=== PATIENT | female | born 1935 | race Caucasian/White ===

== ENCOUNTER 2016-07-01 08:58 | Day surgery (SDC) | payer MEDICARE, BC ==
[~2016-07-01 08:58] MED LIST: Lactated Ringers 1,000 ML IV SCH; Lidocaine 1%/Sod Bicarbonate in NS 8.4% 1 ML Syringe IV PRN; Sodium Chloride 0.9% 10 ML Syringe FLUSH PRN
--- NOTE | 2016-07-01 10:16 | PCM.PREANE ---
Preanesthetic Assessment - Procedure Proposed Procedure: Diagnostic EGD - Anesthesia/Transfusion/Family Hx Anesthesia History: Prior Anesthesia Without Reaction Family History of Anesthesia Reaction: No Transfusion History: No Prior Transfusion(s) - Review of Systems General: No Symptoms Pulmonary: No Symptoms Cardiovascular: No Symptoms Gastrointestinal: Difficulty swallowing Neurological: No Symptoms, Other (TIA 3 years ago ) Other: Reports: None - Physical Assessment NPO Status Date: 06/30/16 NPO Status Time: 20:00 O2 Sat by Pulse Oximetry: 98 Respiratory Rate: 16 Vital Signs: Last Vital Signs Temp 36.3 C 07/01/16 09:20 Pulse 68 07/01/16 09:20 Resp 16 07/01/16 09:20 BP 159/61 H 07/01/16 09:20 Pulse Ox 98 07/01/16 09:20 Height: 1.65 m Weight: 83.915 kg ASA Class: 2 Mental Status: Alert & Oriented x3 Airway Class: Mallampati = 3 Dentition: Reports: Normal Dentition Thyro-Mental Finger Breadths: 3 Mouth Opening Finger Breadths: 3 ROM/Head Extension: Full Lungs: Clear to auscultation, Normal respiratory effort Cardiovascular: Regular Rate, Regular Rhythm - Allergies Allergies/Adverse Reactions: Allergies Allergy/AdvReac Type Severity Reaction Status Date / Time Dairy Products Allergy Stomach Verified 06/30/16 14:46 Upset gluten Allergy Stomach Verified 06/30/16 14:46 Upset walnut Allergy Anaphylactic Verified 06/30/16 14:46 Shock - Blood Blood Available: No Product(s) Available: None - Acknowledgements Anesthesia Type Planned: MAC Pt an Appropriate Candidate for the Planned Anesthesia: Yes Alternatives and Risks of Anesthesia Discussed w Pt/Guardian: Yes Pt/Guardian Understands and Agrees with Anesthesia Plan: Yes PreAnesthesia Questionnaire HEENT History: Reports: Allergic Rhinitis, Cataract, Other (See Below) Other HEENT History: glasses, hearing aids Cardiovascular History: Reports: High Cholesterol, Hypertension Respiratory History: Reports: None Gastrointestinal History: Reports: GERD, Other (See Below) Other Gastrointestinal History: dysphagia Genitourinary History: Reports: None BUILDING MANAGER History: Reports: None Musculoskeletal History: Reports: Arthritis, RA Neurological History: Reports: TIA Psychiatric History: Reports: None Endocrine/Metabolic History: Reports: None Hematologic History: Reports: None Immunologic History: Reports: None Oncologic (Cancer) History: Reports: Basal Cell Carcinoma Dermatologic History: Reports: None - Past Surgical History Head Surgeries/Procedures: Reports: None GI Surgical History: Reports: Colonoscopy - SUBSTANCE USE Smoking Status *Q: Former Smoker Second Hand Smoke Exposure: No Recreational Drug Use History: No - HOME MEDS Home Medications: Home Meds Albuterol [IJD: Ventolin HFA] 1 - 2 puff INH Q4H PRN 06/30/16 [History] Aspirin [Ecotrin] 81 mg PO DAILY 06/30/16 [History] Cholecalciferol (Vitamin D3) [Vitamin D3] 2,000 unit PO DAILY 06/30/16 [History] Folic Acid 1 mg PO TID 06/30/16 [History] Losartan/Hydrochlorothiazide [Losartan-HCTZ 50-12.5 MG] 1 tab PO DAILY 06/30/16 [History] Methotrexate Sodium [Methotrexate] 5 tab PO TH 06/30/16 [History] Nabumetone [Relafen] 750 mg PO BID 06/30/16 [History] [place]-3 Acid Ethyl Esters [Lovaza] 1 g PO BID 06/30/16 [History] Pravastatin Sodium 80 mg PO DAILY 06/30/16 [History] Ubidecarenone [Coq-10] 100 mg PO DAILY 06/30/16 [History] buPROPion [Wellbutrin XL] 150 mg PO DAILY 06/30/16 [History] diphenhydrAMINE [Benadryl] 25 mg PO DAILY PRN 06/30/16 [History] - CURRENT (IN HOUSE) MEDS Current Meds: Current Medications Lactated Ringer's (Ringers, Lactated) 1,000 mls @ 125 mls/hr IV ASDIRECTED LORENZO Stop: 07/01/16 23:00 Last Admin: 07/01/16 09:40 Dose: 125 mls/hr Lidocaine/Sodium Bicarbonate (Buffered Lidocaine 1% In Ns 8.4%) 0.25 ml IV ONETIME PRN PRN Reason: Prior to IV Start Stop: 07/01/16 18:00 Last Admin: 07/01/16 09:39 Dose: 0.25 ml Sodium Chloride (Saline Flush) 10 ml FLUSH ASDIRECTED PRN PRN Reason: Keep Vein Open Stop: 07/01/16 18:00
[2016-07-01] MEDS ORDERED: Propofol 200 MG/20 ML SDV ONE (10:47)
--- NOTE | 2016-07-01 11:12 | PCM48HPAN ---
Post Anesthesia Note - EVALUATION WITHIN 48HRS OF ANESTHETIC Vital Signs in Normal Range: Yes Patient Participated in Evaluation: Yes Respiratory Function Stable: Yes Airway Patent: Yes Cardiovascular Function Stable: Yes Hydration Status Stable: Yes Pain Control Satisfactory: Yes Nausea and Vomiting Control Satisfactory: Yes Mental Status Recovered: Yes
--- NOTE | 2016-07-01 11:15 | PCM.OPNOTE ---
- General Post-Op/Procedure Note Date of Surgery/Procedure: 07/01/16 Operative Procedure(s): Esophagogastroduodenoscopy with cold forceps biopsy of the proximal esophagus x2. The distal esophagus x4 and the antrum x2 Findings: 1. Schatzki's ring, or reflux stricture 2. esophageal ulcer 3. small hiatal hernia 4. mild antritis Pre Op Diagnosis: Dysphagia Post-Op Diagnosis: 1. reflux stricture or Schatzki's ring. 2. sliding hiatal hernia. 3. esophageal ulcer. 4. antritis Anesthesia Technique: MAC, Moderate sedation Primary Surgeon: Silas Chauhan Pathology: 1. proximal esophageal biopsy x2 2. stricture, or ring biopsy x4 3. antral biopsy x2 EBL in mLs: 0 Complications: None Condition: Good Free Text/Narrative:: After adequate IV sedation and analgesia was obtained the patient was placed on her left side. Through a bite block a lubricated upper endoscope was inserted into the esophagus and advanced under direct vision towards the stomach. Additional air was given here. The antrum had several erythematous areas with no erosions or ulcerations. The scope was advanced into the duodenum. The second , and first portion of the duodenum were normal with no inflammation or ulcerations. Two biopsies were taken of the antrum. In the retroflexed view the fundus and cardiac, regions were unremarkable. There was an obvious sliding hiatal hernia. The rugal folds were normal. There were no inflammatory changes in these areas. The scope was withdrawn to the area of the GE junction where there was a concentric ring. These endoscopic findings were consistent with a Schatzki's ring, or an early reflux stricture. The scope passed easily through this area. There was an erosion or ulceration emanating from the ring extended in a cephalad direction for about a centimeter. This linear finding, was biopsied, as well as the ring times four. The proximal esophagus in its third component was biopsied for histologic review. Photographs are taken for the patient and for the record.
[2016-07-01 12:11] VITALS: BP 147/68
== END 2016-07-01 11:42 | disposition home or self-care (01) ==
LOC: JD.SDS 08:58
PROVIDERS: ATTEND Surgery
DX: B33.20 Viral carditis, unspecified (principal); I10 Essential (primary) hypertension; E78.00 Pure hypercholesterolemia, unspecified; K21.9 Gastro-esophageal reflux disease without esophagitis; Z91.011 Allergy to milk products; Z91.018 Allergy to other foods; Z79.899 Other long term (current) drug therapy; Z78.9 Other specified health status; Z87.891 Personal history of nicotine dependence
CPT/HCPCS: 43239; J7120; 88305; J2704

== ENCOUNTER 2017-07-05 17:53 | Emergency (ER) | payer MEDICARE, BC ==
[2017-07-05 18:09] VITALS: BP 154/103
--- NOTE | 2017-07-05 18:21 | EDM.PDOC ---
ED HPI GENERAL MEDICAL PROBLEM - General Chief Complaint: Upper Extremity Injury/Pain Stated Complaint: RIGHT SHOULDER INJURY Time Seen by Provider: 07/05/17 18:16 Source of Information: Reports: Patient History Limitations: Reports: No Limitations - History of Present Illness INITIAL COMMENTS - FREE TEXT/NARRATIVE: 81-year-old female presents the ED indicating that she tripped and fell at home within the last half hour. She got up from the seated position with her hands for one believes she may tripped over the automatic leg. She landed hard on her right shoulder. Since that time she's been unable to abduct or forward flex her right shoulder. She denies hitting her head or losing consciousness. She denies injuring her hip her knee or her wrist. Her ribs feel okay as well. He does not take any blood thinners. Onset: Today Onset Date: 07/05/17 Onset Time: 17:30 Location: Reports: Upper Extremity, Right (Right proximal humerus.) Quality: Reports: Ache Severity: Moderate Improves with: Reports: None Worsens with: Reports: Movement Context: Reports: Trauma (Tripped and fell at home in her living room.). Denies : Activity, Exercise (Any attempt to abduct the arm causes severe pain), Lifting , Sick Contact Associated Symptoms: Reports: No Other Symptoms Treatments CLINICAL RESOURCE NURSE: Reports: Other (see below) (None.) Right Shoulder Pain Score (Numeric/FACES): 10 - Related Data Allergies Allergy/AdvReac Type Severity Reaction Status Date / Time Dairy Products Allergy Stomach Verified 06/30/16 14:46 Upset gluten Allergy Stomach Verified 06/30/16 14:46 Upset walnut Allergy Anaphylactic Verified 06/30/16 14:46 Shock Home Meds: Home Meds Albuterol [IJD: Ventolin HFA] 1 - 2 puff INH Q4H PRN 06/30/16 [History] Aspirin [Ecotrin] 81 mg PO DAILY 06/30/16 [History] Cholecalciferol (Vitamin D3) [Vitamin D3] 2,000 unit PO DAILY 06/30/16 [History] Folic Acid 1 mg PO TID 06/30/16 [History] Losartan/Hydrochlorothiazide [Losartan-HCTZ 50-12.5 MG] 1 tab PO DAILY 06/30/16 [History] Methotrexate Sodium [Methotrexate] 5 tab PO TH 06/30/16 [History] Nabumetone [Relafen] 750 mg PO BID 06/30/16 [History] [place]-3 Acid Ethyl Esters [Lovaza] 1 g PO BID 06/30/16 [History] Pravastatin Sodium 80 mg PO DAILY 06/30/16 [History] Ubidecarenone [Coq-10] 100 mg PO DAILY 06/30/16 [History] buPROPion [Wellbutrin XL] 150 mg PO DAILY 06/30/16 [History] diphenhydrAMINE [Benadryl] 25 mg PO DAILY PRN 06/30/16 [History] oxyCODONE HCl/Acetaminophen [Percocet 5-325 mg Tablet] 1 - 2 each PO Q4H PRN # 20 tablet 07/05/17 [Rx] Past Medical History HEENT History: Reports: Allergic Rhinitis, Cataract, Other (See Below) Other HEENT History: glasses, hearing aids Cardiovascular History: Reports: High Cholesterol, Hypertension Respiratory History: Reports: None Gastrointestinal History: Reports: GERD, Other (See Below) Other Gastrointestinal History: dysphagia Genitourinary History: Reports: None INSURANCE CONSULTANT History: Reports: None Musculoskeletal History: Reports: Arthritis, RA Neurological History: Reports: TIA Psychiatric History: Reports: None Endocrine/Metabolic History: Reports: None Hematologic History: Reports: None Immunologic History: Reports: None Oncologic (Cancer) History: Reports: Basal Cell Carcinoma Dermatologic History: Reports: None - Past Surgical History Head Surgeries/Procedures: Reports: None GI Surgical History: Reports: Colonoscopy Social & Family History - Family History Family Medical History: Noncontributory - Tobacco Use Smoking Status *Q: Never Smoker - Caffeine Use Caffeine Use: Reports: None - Recreational Drug Use Recreational Drug Use: No - Living Situation & Occupation Living situation: Reports: Occupation: Retired Review of Systems - Review of Systems Review Of Systems: See Below Constitutional: Reports: No Symptoms Eyes: Reports: Glasses (Wears eyeglasses) Ears: Reports: No Symptoms Nose: Reports: No Symptoms Mouth/Throat: Reports: No Symptoms Respiratory: Reports: No Symptoms Cardiovascular: Reports: No Symptoms GI/Abdominal: Reports: No Symptoms Genitourinary: Reports: No Symptoms Musculoskeletal: Reports: Joint Pain Skin: Reports: No Symptoms (Knees hips back at times.) Neurological: Reports: No Symptoms Psychiatric: Reports: No Symptoms ED EXAM, GENERAL - Physical Exam Exam: See Below Exam Limited By: No Limitations General Appearance: Alert, WD/WN, Mild Distress Throat/Mouth: Normal Inspection, Normal Lips, Normal Oropharynx Head: Atraumatic, Normocephalic Neck: Normal Inspection, Supple, Non-Tender, Full Range of Motion. No: Carotid Bruit, Lymphadenopathy (L), Lymphadenopathy (R) Respiratory/Chest: No Respiratory Distress, Lungs Clear, Normal Breath Sounds, Other (No ) Cardiovascular: Normal Peripheral Pulses, Regular Rate, Rhythm, No Edema, No Murmur (pain on palpation of her ribs.) Peripheral Pulses: 2+: Radial (L), Radial (R) Extremities: Other (Examination was limited for the most part of the right upper extremity. Her wrist is intact her hand is normal she has full pronation supination at the elbow. Pain is localized to the surgical neck of the humerus. Clavicle appears intact no pain over the before meals joint.) Neurological: Alert ( No obvious swelling or deformity.), Oriented, CN II-XII Intact, Normal Cognition, Normal Gait Psychiatric: Normal Affect, Normal Mood Skin Exam: Warm, Dry, Intact, Normal Color, No Rash Course - Vital Signs Last Recorded V/S: Last Vital Signs Temp 36.6 C 07/05/17 18:06 Pulse 62 07/05/17 18:06 Resp 16 07/05/17 18:06 BP 154/103 H 07/05/17 18:06 Pulse Ox 97 07/05/17 18:06 - Orders/Labs/Meds Orders: Active Orders 24 hr Category Date Time Status Humerus Rt [CR] Stat Exams 07/05/17 18:17 Taken Meds: Medications Discontinued Medications Generic Name Dose Route Start Last Admin Trade Name Freq PRN Reason Stop Dose Admin Oxycodone/Acetaminophen 2 tab 07/05/17 18:56 07/05/17 19:10 Percocet 325-5 Mg PO 07/05/17 18:57 2 tab ONETIME ONE Administration - Radiology Interpretation Free Text/Narrative:: 81-year-old female presents to the ED for evaluation of injury to her right proximal humerus area when she tripped and fell at home short time ago. She believes she landed directly on her right shoulder. Since that time she's been a unable to afford flex or abduct the shoulder. Pain is localized to the proximal right humerus. No other injuries are identified. Plan: x-ray right humerus. - Re-Assessments/Exams Free Text/Narrative Re-Assessment/Exam: 07/05/17 18:58 x-rays confirmed fracture of the proximal humerus with good position. There is slight impaction at the fracture site. Position is otherwise good. Patient will be treated with sling and swath. Provided 2 Percocet tablets from the ED tonight. Take one tablet first and see off Effexor pain and may repeat in one half hours if pain not controlled. Ice pack to the shoulder for one half hour out of every 4 hours tonight and tomorrow. She will follow-up with Dr. Garduno orthopedic surgeon in 10 days' time. Departure - Departure Time of Disposition: 18:59 Disposition: Home, Self-Care 01 Condition: Fair Clinical Impression: Fracture of proximal humerus Qualifiers: Encounter type: initial encounter Fracture type: closed Fracture morphology: other fracture Fracture alignment: nondisplaced Laterality: right Qualified Code (s): S42.294A - Other nondisplaced fracture of upper end of right humerus, initial encounter for closed fracture - Discharge Information Prescriptions: oxyCODONE HCl/Acetaminophen [Percocet 5-325 mg Tablet] 1 - 2 each PO Q4H PRN # 20 tablet PRN Reason: pain relief. Instructions: Distal Humerus Elbow Fracture Referrals: PCP,None [Primary Care Provider] - Forms: ED Department Discharge Additional Instructions: Evaluation the emergency room today in regards to a trip and fall at home with injury to your right upper arm. X-rays confirm a fracture through the proximal aspect of the humerus or arm bone. The position and alignment are good. Treatment is therefore time to heal. Treatment is to be a in a sling and swath for most of the next 3 weeks. Take it off only to bathe up underneath your armpit and etc.Ice pack to the area one half hour every 4 hours today and tomorrow. Percocet tabs for pain relief 1 tablet every 4-6 hours as needed. If still hurting badly and hour and a half after the first tablet may take a second tablet. Suggest placing bupropion medication on hold for the next 3-5 days while you are on the pain medication as the Bupropion interferes with the metabolism of oxycodone or hydrocodone. Suggest follow-up with Dr. Garduno orthopedic surgeon in 10 days' time. Please call [phone] to arrange an appointment tomorrow. His office on the second floor of the [facility]. - My Orders Last 24 Hours: My Active Orders 07/05/17 18:17 Humerus Rt [CR] Stat - Assessment/Plan Last 24 Hours: My Active Orders 07/05/17 18:17 Humerus Rt [CR] Stat
[2017-07-05] MEDS ORDERED: Acetaminophen/oxyCODONE 325-5 MG Tab PO ONE (18:56)
--- NOTE | 2017-07-06 10:07 | CR ---
Right humerus: Two views of the right humerus were obtained. Comparison: No prior humerus or shoulder exam. Nondisplaced fracture is identified within the surgical neck within the proximal humerus. No additional fracture or other abnormality is seen. Impression: 1. Nondisplaced fracture involving the surgical neck of the proximal right humerus. Diagnostic code #3
== END 2017-07-05 19:15 | disposition home or self-care (01) ==
LOC: JD.ED 17:53
DX: S42.214A Unspecified nondisplaced fracture of surgical neck of right humerus, initial encounter for closed fracture (principal); I10 Essential (primary) hypertension; E78.00 Pure hypercholesterolemia, unspecified; K21.9 Gastro-esophageal reflux disease without esophagitis; M19.90 Unspecified osteoarthritis, unspecified site; Z91.011 Allergy to milk products; Z79.82 Long term (current) use of aspirin; Z79.899 Other long term (current) drug therapy; W01.198A Fall on same level from slipping, tripping and stumbling with subsequent striking against other object, initial encounter; Y92.009 Unspecified place in unspecified non-institutional (private) residence as the place of occurrence of the external cause
CPT/HCPCS: 73060; 99284; A9270

== ENCOUNTER 2019-05-12 16:58 | Inpatient (IN) | payer MEDICARE, BC, OTHER ==
--- NOTE | 2019-05-12 17:13 | EDM.PDOC ---
ED HPI GENERAL MEDICAL PROBLEM - General Chief Complaint: Respiratory Problem Stated Complaint: SENT FROM [place] WITH POSSIBLE COVID 19 Time Seen by Provider: 05/12/19 17:12 - History of Present Illness INITIAL COMMENTS - FREE TEXT/NARRATIVE: 83-year-old female presents to the emergency room after being evaluated in the walk-in clinic at [facility]. She is sent over for evaluation of possible COVID-19 pneumonia. Patient states she has not been feeling well for the last 2 weeks. The patient did come back here from [place] where she spent most the winter a couple of weeks ago. Patient just generally has not been feeling well she is got a little bit of a cough occasionally productive. She is not aware of any fevers or chills. Patient is treated for rheumatoid arthritis she has been taking her methotrexate but is not been taking the Remicade because there was some sort of a tangle up with the insurance. She denies any nausea or vomiting and she has no urinary complaints. Buttock Pain Score (Numeric/FACES): 5 - Related Data Allergies Allergy/AdvReac Type Severity Reaction Status Date / Time Dairy Products Allergy Stomach Verified 05/12/19 17:07 Upset gluten Allergy Stomach Verified 05/12/19 17:07 Upset walnut Allergy Anaphylactic Verified 05/12/19 17:07 Shock Home Meds: Home Meds Aspirin [Ecotrin EC] 81 mg PO DAILY 06/30/16 [History] Cholecalciferol (Vitamin D3) [Vitamin D3] 2,000 unit PO DAILY 06/30/16 [History] Folic Acid 1 mg PO TID 06/30/16 [History] Losartan/Hydrochlorothiazide [Losartan-HCTZ 50-12.5 MG] 1 tab PO DAILY 06/30/16 [History] Methotrexate Sodium [Methotrexate] 5 tab PO TH 06/30/16 [History] Nabumetone [Relafen] 750 mg PO BID 06/30/16 [History] [place]-3 Acid Ethyl Esters [Lovaza] 1 g PO BID 06/30/16 [History] Pravastatin Sodium 80 mg PO DAILY 06/30/16 [History] Ubidecarenone [Coq-10] 100 mg PO DAILY 06/30/16 [History] buPROPion [Wellbutrin XL] 150 mg PO DAILY 06/30/16 [History] oxyCODONE HCl/Acetaminophen [Percocet 5-325 mg Tablet] 1 - 2 each PO Q4H PRN # 20 tablet 07/05/17 [Rx] Past Medical History HEENT History: Reports: Allergic Rhinitis, Cataract, Other (See Below) Other HEENT History: glasses, hearing aids Cardiovascular History: Reports: High Cholesterol, Hypertension Respiratory History: Reports: None Gastrointestinal History: Reports: GERD, Other (See Below) Other Gastrointestinal History: dysphagia Genitourinary History: Reports: None COMMUNITY ADMINISTRATOR History: Reports: None Musculoskeletal History: Reports: Arthritis, RA Neurological History: Reports: TIA Psychiatric History: Reports: None Endocrine/Metabolic History: Reports: None Hematologic History: Reports: None Immunologic History: Reports: None Oncologic (Cancer) History: Reports: Basal Cell Carcinoma Dermatologic History: Reports: None - Past Surgical History Head Surgeries/Procedures: Reports: None GI Surgical History: Reports: Colonoscopy Social & Family History - Family History Family Medical History: Noncontributory - Caffeine Use Caffeine Use: Reports: None - Living Situation & Occupation Living situation: Reports: Occupation: Retired ED ROS GENERAL - Review of Systems Review Of Systems: See Below Constitutional: Reports: No Symptoms HEENT: Reports: No Symptoms Respiratory: Reports: Cough, Sputum. Denies: Hemoptysis Cardiovascular: Reports: No Symptoms Endocrine: Reports: No Symptoms GI/Abdominal: Reports: No Symptoms : Reports: No Symptoms Musculoskeletal: Reports: No Symptoms Skin: Reports: No Symptoms Neurological: Reports: No Symptoms Psychiatric: Reports: No Symptoms ED EXAM, GENERAL - Physical Exam Exam: See Below Exam Limited By: No Limitations General Appearance: Alert, No Apparent Distress, Other Eye Exam: Bilateral Eye: Normal Inspection Ears: Normal External Exam, Normal Canal, Hearing Grossly Normal, Normal TMs Nose: Normal Inspection, Normal Mucosa, No Blood Throat/Mouth: Normal Inspection, Normal Lips, Normal Teeth, Normal Gums Head: Atraumatic, Normocephalic Neck: Normal Inspection, Supple, Non-Tender, Full Range of Motion. No: Lymphadenopathy (L), Lymphadenopathy (R) Respiratory/Chest: No Respiratory Distress, Lungs Clear, Normal Breath Sounds Cardiovascular: Systolic Murmur (3/6 systolic murmur heard best in the right upper sternal border) GI/Abdominal: Normal Bowel Sounds, Soft, Non-Tender Back Exam: Normal Inspection. No: CVA Tenderness (L), CVA Tenderness (R) Course - Vital Signs Last Recorded V/S: Last Vital Signs Temp 37.1 C 05/12/19 17:00 Pulse 101 H 05/12/19 17:00 Resp 20 05/12/19 17:00 BP 130/73 05/12/19 17:00 Pulse Ox 96 05/12/19 17:00 - Orders/Labs/Meds Orders: Active Orders 24 hr Category Date Time Status ABG [BLOOD GAS ARTERIAL] [BG] Stat Lab 05/12/19 18:10 Ordered C Reactive Protein [C-REACTIVE PROTEIN] [CHEM] Stat Lab 05/12/19 17:11 Results CBC WITH MANUAL DIFF [HEME] Stat Lab 05/12/19 17:11 Results CULTURE BLOOD [BC] Stat Lab 05/12/19 17:19 Ordered CULTURE BLOOD [BC] Stat Lab 05/12/19 17:19 Ordered LACTATE DEHYDROGENASE,LDH [CHEM] Stat Lab 05/12/19 17:11 Results MYCOPLASMA PNEUMONIAE IGM AB [CHEM] Stat Lab 05/12/19 17:11 Results REFLEX LACTIC ACID YES OR NO [CHEM] Routine Lab 05/12/19 18:06 Received Blood Culture x2 Reflex Set [OM.PC] Stat Oth 05/12/19 17:19 Ordered Labs: Laboratory Tests 05/12/19 05/12/19 05/12/19 Range/Units 17:11 17:11 17:11 WBC 29.33 H (3.98-10.04) K/mm3 RBC 2.90 L (3.98-5.22) M/mm3 Hgb 9.6 L (11.2-15.7) gm/dl Hct 30.3 L (34.1-44.9) % MCV 104.5 H (79.4-94.8) fl MCH 33.1 H (25.6-32.2) pg MCHC 31.7 L (32.2-35.5) g/dl RDW Std Deviation 68.6 H (36.4-46.3) fL Plt Count 175 L (182-369) K/mm3 MPV 9.5 (9.4-12.3) fl D-Dimer, Quantitative (0.19-0.50) mg/L Lactic Acid (0.4-2.0) mmol/L Ferritin 792 H (8-252) ng/ml Lactate Dehydrogenase 802 H (81-234) U/L C-Reactive Protein 1.6 H* (<1.0) mg/dL 05/12/19 05/12/19 Range/Units 17:11 17:11 WBC (3.98-10.04) K/mm3 RBC (3.98-5.22) M/mm3 Hgb (11.2-15.7) gm/dl Hct (34.1-44.9) % MCV (79.4-94.8) fl MCH (25.6-32.2) pg MCHC (32.2-35.5) g/dl RDW Std Deviation (36.4-46.3) fL Plt Count (182-369) K/mm3 MPV (9.4-12.3) fl D-Dimer, Quantitative 7.03 H (0.19-0.50) mg/L Lactic Acid 2.7 H* (0.4-2.0) mmol/L Ferritin (8-252) ng/ml Lactate Dehydrogenase (81-234) U/L C-Reactive Protein (<1.0) mg/dL - Re-Assessments/Exams Free Text/Narrative Re-Assessment/Exam: 05/12/19 18:31 GFR 35. Get a hold of the chest x-ray she had done at [facility] and she is got a right middle lobe infiltrate. Her white count here is almost 30,000 still waiting on the manual differential. Strips from [facility] showed blood sugar of 148 BUN 48 creatinine 1.44 sodium 138 potassium 5.2 chloride 104 CO2 23 anion gap 16 calcium 10.7 total protein 7.2 albumin 3.9 alk phos 82 AST slightly elevated at 58 ALT 17 total bilirubin 1.1 calcium 10.8 Result quite elevated at 7.03 the patient does not have chest pain. Lactic acid is mildly elevated at 2.7 ferritin is 792 LDH 802 and C-reactive protein 1.6 elevated white count lobular pattern of the infiltrate I am suspecting more of a bacterial process. I have got a call out to Dr. Khan her hospitalist who was busy when I called her but will return to the emergency department shortly. 05/12/19 19:18 Dr. Khan is here who will assume care Departure - Departure Time of Disposition: 18:35 Disposition: Admitted As Inpatient 67 Clinical Impression: Pneumonia - Discharge Information Forms: ED Department Discharge Sepsis Event Note - Evaluation Sepsis Screening Result: No Definite Risk - Focused Exam Vital Signs: Vital Signs Temp Pulse Resp BP Pulse Ox 05/12/19 17:00 37.1 C 101 H 20 130/73 96 Date Exam was Performed: 05/12/19 Time Exam was Performed: 18:17 - My Orders Last 24 Hours: My Active Orders 05/12/19 17:11 C Reactive Protein [C-REACTIVE PROTEIN] [CHEM] Stat CBC WITH MANUAL DIFF [HEME] Stat LACTATE DEHYDROGENASE,LDH [CHEM] Stat MYCOPLASMA PNEUMONIAE IGM AB [CHEM] Stat 05/12/19 17:19 CULTURE BLOOD [BC] Stat CULTURE BLOOD [BC] Stat Blood Culture x2 Reflex Set [OM.PC] Stat 05/12/19 18:06 REFLEX LACTIC ACID YES OR NO [CHEM] Routine - Assessment/Plan Last 24 Hours: My Active Orders 05/12/19 17:11 C Reactive Protein [C-REACTIVE PROTEIN] [CHEM] Stat CBC WITH MANUAL DIFF [HEME] Stat LACTATE DEHYDROGENASE,LDH [CHEM] Stat MYCOPLASMA PNEUMONIAE IGM AB [CHEM] Stat 05/12/19 17:19 CULTURE BLOOD [BC] Stat CULTURE BLOOD [BC] Stat Blood Culture x2 Reflex Set [OM.PC] Stat 05/12/19 18:06 REFLEX LACTIC ACID YES OR NO [CHEM] Routine
[2019-05-12] MEDS ORDERED: Azithromycin 500 MG in Sodium Chloride 0.9% 250 ML IV ONE (19:12)
[2019-05-12] MEDS ORDERED: 50% Dextrose in Water 50 ML Syringe IVPUSH STA (19:23)
[2019-05-12] MEDS ORDERED: Insulin Regular, Human 100 Units/ML 3 ML Vial IV ONE (19:23)
[2019-05-12] MEDS ORDERED: Calcium Gluconate 10% 1 GM/10 ML SDV IVPUSH ONE (19:23)
[2019-05-12] MEDS ORDERED: Iopamidol 755 Mg/ML 100 ML Bottle IVPUSH ONE (19:25)
[2019-05-12] MEDS ORDERED: Sodium Chloride 0.9% 500 ML IV ONE (19:26)
[2019-05-12] MEDS: cefTRIAXone 2 GM in Sodium Chloride 0.9% 100 ML IV SCH (19:26)
[2019-05-12] MEDS ORDERED: Sodium Chloride 0.9% 100 ML IV SCH ×2 (19:30→21:15)
--- NOTE | 2019-05-12 19:43 | PCM.HP.2 ---
H&P History of Present Illness - General Date of Service: 05/12/19 - History of Present Illness Initial Comments - Free Text/Narative: This is an 83 year old female with past medical history of hypertension and rheumatoid arthritis who comes to the ED complaining of decreased appetite, dry cough, runny nose for approximately 2 weeks. As per patient she was in usual state of health up to 2 weeks ago when she started feeling worsening fatigue, decreased appetite, weakness, difficulty sleeping. Denies fevers, chest pain, dizziness, shortness of breath, extremity edema, or pain with walking. She was in [place] 2 weeks ago and she was having some epistaxis episodes that spontaneously resolved. She was in [place] for 3 months, rents a condo in [place] community. Once she arrived home 2 weeks ago (drove up, did not fly) she started feeling " lousy". States that she doesn't really finish mender a lot especially since she started feeling sick. Buttock Pain Score (Numeric/FACES): 5 - Related Data Allergies/Adverse Reactions: Allergies Allergy/AdvReac Type Severity Reaction Status Date / Time Dairy Products Allergy Stomach Verified 05/13/19 02:31 Upset gluten Allergy Stomach Verified 05/13/19 02:31 Upset walnut Allergy Anaphylactic Verified 05/13/19 02:31 Shock Home Medications: Home Meds Aspirin [Ecotrin EC] 81 mg PO DAILY 06/30/16 [History] Cholecalciferol (Vitamin D3) [Vitamin D3] 2,000 unit PO DAILY 06/30/16 [History] Folic Acid 3,000 mcg PO DAILY 06/30/16 [History] Losartan/Hydrochlorothiazide [Losartan-HCTZ 50-12.5 MG] 0.5 tab PO DAILY [History] Methotrexate Sodium [Methotrexate] 15 mg PO TH 06/30/16 [History] [place]-3 Acid Ethyl Esters [Lovaza] 1 g PO BID 06/30/16 [History] Pravastatin Sodium 80 mg PO DAILY 06/30/16 [History] buPROPion [Wellbutrin XL] 150 mg PO DAILY 06/30/16 [History] Alendronate [Fosamax] 70 mg PO ASDIRECTED 05/13/19 [History] Cholecalciferol (Vitamin D3) [Vitamin D] 5,000 intunit PO DAILY 05/13/19 [ History] Naltrexone 4.5 mg PO BEDTIME 05/13/19 [History] Past Medical History HEENT History: Reports: Allergic Rhinitis, Cataract, Other (See Below) Other HEENT History: glasses, hearing aids Cardiovascular History: Reports: High Cholesterol, Hypertension Respiratory History: Reports: None Gastrointestinal History: Reports: GERD, Other (See Below) Other Gastrointestinal History: dysphagia Genitourinary History: Reports: None LADIES' HAT TRIMMER History: Reports: None Musculoskeletal History: Reports: Arthritis, RA Neurological History: Reports: TIA Psychiatric History: Reports: None Endocrine/Metabolic History: Reports: None Hematologic History: Reports: None Immunologic History: Reports: None Oncologic (Cancer) History: Reports: Basal Cell Carcinoma Dermatologic History: Reports: None - Past Surgical History Head Surgeries/Procedures: Reports: None GI Surgical History: Reports: Colonoscopy Social & Family History - Family History Family Medical History: Noncontributory - Tobacco Use Smoking Status *Q: Former Smoker Used Tobacco, but Quit: Yes Month/Year Tobacco Last Used: 02/1989 - Caffeine Use Caffeine Use: Reports: None - Recreational Drug Use Recreational Drug Use: No - Living Situation & Occupation Living situation: Reports: Occupation: Retired H&P Review of Systems - Review of Systems: Review Of Systems: See Below General: Reports: Malaise, Weakness, Fatigue, Decreased Appetite. Denies: Fever , Chills, Night Sweats, Diaphoresis, Weight Loss, Weight Gain HEENT: Denies: Headaches, Hearing Changes, Rhinitis, Post Nasal Drip, Sinus Congestion, Sore Throat, Vertigo, Visual Changes Pulmonary: Reports: Cough. Denies: Shortness of Breath, Wheezing, Pleuritic Chest Pain, Sputum, Hemoptysis Cardiovascular: Denies: Chest Pain, Palpitations, Dyspnea on Exertion, Orthopnea , PND, Edema, Lightheadedness, Syncope Gastrointestinal: Reports: Decreased Appetite. Denies: Abdominal Pain, Anorexia , Diarrhea, Distension, Flatus, Nausea, Vomiting Genitourinary: Denies: Dysuria, Frequency, Burning, Pain, Urgency Musculoskeletal: Denies: Joint Pain, Joint Swelling, Muscle Pain, Muscle Stiffness Skin: Reports: Pallor. Denies: Cyanosis, Jaundice, Mottled, Diaphoresis, Dryness Psychiatric: Denies: Confusion, Depression, Mood Lability, Anxiety Neurological: Denies: Confusion, Dizziness, Headache, Numbness Hematologic/Lymphatic: Denies: Anemia, Easy Bleeding Exam - Exam Exam: See Below - Vital Signs Vital Signs: Last Vital Signs Temp 98.7 F 05/12/19 17:00 Pulse 101 H 05/12/19 17:00 Resp 20 05/12/19 17:00 BP 130/73 05/12/19 17:00 Pulse Ox 96 05/12/19 17:00 Weight: 83.915 kg - Exam Quality Assessment: Supplemental Oxygen. No: Central Line/PICC, Urinary Catheter, DVT Prophylaxis, Skin Breakdown General: Alert, Oriented, Moderate Distress HEENT: Conjunctiva Clear, EACs Clear, EOMI, Nares Patent, Normal Nasal Septum. No: Mucosa Moist & [place] Neck: Supple, Trachea Midline, +2 Carotid Pulse wo Bruit, Full Range of Motion, Lymphadenopathy Lungs: Clear to Auscultation, Normal Respiratory Effort. No: Decreased Breath Sounds, Crackles, Rales, Rhonchi, Rub, Stridor, Wheezing Cardiovascular: Regular Rate, Regular Rhythm. No: Systolic Murmur, Diastolic Murmur, Rubs, Gallop/S3, Gallop/S4 GI/Abdominal Exam: Normal Bowel Sounds, Soft, Non-Tender. No: Distended, Guarding, Rigid, Rebound Extremities: Normal Inspection, Normal Range of Motion, Non-Tender, Pedal Edema (R leg) - Patient Data Result Diagrams: 05/13/19 15:25 05/13/19 04:39 Sepsis Event Note - Evaluation Sepsis Screening Result: No Definite Risk - Focused Exam Vital Signs: Vital Signs Temp Pulse Resp BP Pulse Ox 05/12/19 17:00 98.7 F 101 H 20 130/73 96 Date Exam was Performed: 05/13/19 Time Exam was Performed: 19:47 - Problem List (1) Community acquired bacterial pneumonia SNOMED Code(s): 075446963, 606915790 ICD Code: J15.9 - UNSPECIFIED BACTERIAL PNEUMONIA Status: Acute Current Visit: Yes (2) Suspected COVID-19 virus infection SNOMED Code(s): 313336846 ICD Code: R68.89 - OTHER GENERAL SYMPTOMS AND SIGNS Status: Acute Current Visit: Yes (3) Acute hypoxemic respiratory failure SNOMED Code(s): 234320766 ICD Code: J96.01 - ACUTE RESPIRATORY FAILURE WITH HYPOXIA Status: Acute Current Visit: Yes (4) Hyperkalemia SNOMED Code(s): 37231784 ICD Code: E87.5 - HYPERKALEMIA Status: Acute Current Visit: Yes (5) Chronic kidney disease SNOMED Code(s): 172793022 ICD Code: N18.9 - CHRONIC KIDNEY DISEASE, UNSPECIFIED Status: Acute Current Visit: Yes (6) Acute kidney injury SNOMED Code(s): 31868818, 04371611 ICD Code: N17.9 - ACUTE KIDNEY FAILURE, UNSPECIFIED Status: Acute Current Visit: Yes (7) Hypertension SNOMED Code(s): 29567927 ICD Code: I10 - ESSENTIAL (PRIMARY) HYPERTENSION Status: Acute Current Visit: Yes (8) Leukocytosis SNOMED Code(s): 610081817, 770605124 ICD Code: D72.829 - ELEVATED WHITE BLOOD CELL COUNT, UNSPECIFIED Status: Acute Current Visit: Yes (9) Macrocytic anemia SNOMED Code(s): 22481013 ICD Code: D53.9 - NUTRITIONAL ANEMIA, UNSPECIFIED Status: Acute Current Visit: Yes (10) Rheumatoid arthritis SNOMED Code(s): 40176654 ICD Code: M06.9 - RHEUMATOID ARTHRITIS, UNSPECIFIED Status: Acute Current Visit: Yes Problem List Initiated/Reviewed/Updated: Yes Assessment/Plan Comment:: ASSESSMENT BY DAY Day of admission - Worsening respiratory status - Hypoxemic on admission to the ED--> required O2 supplementation via nasal cannula - Infiltrate on CXR on R middle lobe - K of 5.3 with tented T waves, no prior EKG to compare - On MTX for rheumatoid arthritis, last dose 09/2018 PLAN BY PROBLEMS Community acquired bacterial pneumonia Suspected COVID-19 virus infection Acute hypoxemic respiratory failure - Start Rocephin and Azithromycin daily - Sent out COVID test - Procalcitonin q48h - Maximum isolation - RT - As needed DuoNebs - O2 supplementation as needed Acute kidney injury vs Acute on Chronic kidney disease Hyperkalemia - Calcium gluconate + insulin + D50 - Repeat EKG in AM - Monitor urine output renally dosed medications, avoid nephrotoxic agents Hypertension - Continue home meds once available - Hydralazine as needed PROPHYLAXIS DVT- Lovenox GI- not indicated CODE STATUS: FULL CODE DISPOSITION: Patient will be admitted for IV antibiotics and O2 supplementation, pending rule out of COVID - Mortality Measure Prognosis:: Poor
[2019-05-12] MEDS ORDERED: Benzonatate 100 MG Cap PO PRN (19:54)
[2019-05-12] MEDS ORDERED: Ondansetron 4 MG/2 ML SDV IV PRN (19:54)
[2019-05-12] MEDS ORDERED: Ondansetron 4 MG Tab.DIS PO PRN (19:54)
[2019-05-12] MEDS ORDERED: Albuterol/Ipratropium 3.0-0.5 MG/3 ML Neb Soln NEB PRN (19:54)
[2019-05-12] MEDS ORDERED: Acetaminophen 325 MG Tab PO PRN (19:54)
[2019-05-12] MEDS ORDERED: Lactated Ringers 1,000 ML IV SCH (20:00)
[2019-05-12] MEDS ORDERED: hydrALAZINE 20 MG/ML SDV IVPUSH PRN (20:02)
[2019-05-12] MEDS ORDERED: Lactated Ringers 1,000 ML IV ONE (22:45)
[2019-05-12] MEDS: guaiFENesin 600 MG Tab.ER PO SCH (23:18)
[2019-05-13] MEDS: Lactated Ringers 1,000 ML IV SCH ×2 (01:15→12:35)
[2019-05-13] MEDS: guaiFENesin 600 MG Tab.ER PO SCH ×2 (08:38→20:49)
--- NOTE | 2019-05-13 09:55 | CT ---
CT chest Technique: Multiple axial sections through the chest were obtained. Intravenous contrast was utilized. Study has been performed as a pulmonary angiogram protocol. Comparison: Prior chest x-ray performed earlier on the same day (4 PM). Findings: Small to moderate size right-sided pleural effusion is noted. Mild coronary artery calcification is seen. Atherosclerotic calcification is noted within the thoracic aorta. Ascending aorta is slightly aneurysmal with AP dimension of 4.2 cm. Heart is mildly enlarged. Trace left-sided pleural effusion is noted. Right hilar lymph node or mass is noted measuring 2.9 cm. There is consolidation within the posterior right upper lung which is adjacent to the major fissure. Subcarinal and mediastinal lymph nodes are seen. These are more numerous than usually seen. Largest lymph node measures about 1.4 cm. No axillary adenopathy is appreciated. 2 cysts noted within the right kidney. Largest cyst measures approximately 2.0 cm. Multiple small low density lesions are seen within the liver involving both right and left lobes. Larger findings have Hounsfield unit measurements of cysts but smaller findings cannot be confirmed as cysts by Hounsfield unit measurements. Largest finding measures about 1 cm. Abdominal aorta that is seen shows atherosclerotic change without aneurysm. No adrenal abnormalities are seen. Atelectasis is seen adjacent to the right-sided pleural effusion. Groundglass appearance noted within the left upper lung presumably due to infection. Small groundglass area is noted within the right middle lobe possibly due to additional infection. Slight nodular pleural thickening is seen within the right lung base. No findings of pulmonary embolism. Bone window settings were reviewed. Scattered degenerative change is noted within the spine. Small sclerotic areas are seen within several thoracic vertebral bodies which are nonspecific but could represent bone islands. Osteoblastic metastasis are felt to be possible but less likely. Impression: 1. Right hilar lymph node or mass measuring 2.9 cm. Consolidation within the posterior right upper lung and the appearance of pneumonia. Groundglass within the left upper lung possibly due to additional infection as well as small nodular area of groundglass within the right middle lobe possibly due to additional infection. 2. Mediastinal lymph nodes are mildly prominent. 3. Multiple low-density findings within the liver with larger abnormalities representing cysts. Smaller abnormalities most likely of similar etiology. 4. Mild to moderate right-sided pleural effusion and trace left-sided pleural effusion. 5. Other findings which are felt to be nonacute as described above. Note: Recommend treatment as a pneumonia with follow-up contrast-enhanced chest CT performed in 3-4 months to further evaluate for resolution or stability of mediastinal and right hilar lymph nodes as well as stability of liver lesions. Diagnostic code #9 This report was dictated in MDT I agree with preliminary report from [facility], finalized on 05/12/19, 11:32 PM Central Time
[2019-05-13] MEDS: cefTRIAXone 2 GM in Sodium Chloride 0.9% 100 ML IV SCH ×2 (17:32→20:49)
--- NOTE | 2019-05-13 19:36 | PCM.PN ---
- General Info Date of Service: 05/13/19 Subjective Update: Feeling OK Slept OK Tolerating diet - Patient Data Vitals - Most Recent: Last Vital Signs Temp 97.7 F 05/13/19 16:00 Pulse 88 05/13/19 12:38 Resp 33 H 05/13/19 16:00 BP 124/73 05/13/19 16:00 Pulse Ox 100 05/13/19 16:00 Weight - Most Recent: 79.197 kg - Exam Physical Findings Comments:: Quality Assessment: Supplemental Oxygen. No: Central Line/PICC, Urinary Catheter, DVT Prophylaxis, Skin Breakdown General: Alert, Oriented, Moderate Distress HEENT: Conjunctiva Clear, EACs Clear, EOMI, Nares Patent, Normal Nasal Septum. No: Mucosa Moist & [place] Neck: Supple, Trachea Midline, +2 Carotid Pulse wo Bruit, Full Range of Motion, Lymphadenopathy Lungs: Clear to Auscultation, Normal Respiratory Effort. No: Decreased Breath Sounds, Crackles, Rales, Rhonchi, Rub, Stridor, Wheezing Cardiovascular: Regular Rate, Regular Rhythm. No: Systolic Murmur, Diastolic Murmur, Rubs, Gallop/S3, Gallop/S4 GI/Abdominal Exam: Normal Bowel Sounds, Soft, Non-Tender. No: Distended, Guarding, Rigid, Rebound Extremities: Normal Inspection, Normal Range of Motion, Non-Tender, Pedal Edema (R leg) Sepsis Event Note - Evaluation Sepsis Screening Result: No Definite Risk - Focused Exam Vital Signs: Vital Signs Temp Temp Pulse Resp BP BP Pulse Ox 05/13/19 16:00 97.7 F 33 H 124/73 100 05/13/19 15:51 97.7 F 28 H 124/73 100 05/13/19 12:38 98.4 F 88 20 119/60 99 05/13/19 12:00 99 05/13/19 08:00 97.7 F 85 20 116/73 98 Date Exam was Performed: 05/13/19 Time Exam was Performed: 19:59 - Problem List & Annotations (1) Community acquired bacterial pneumonia SNOMED Code(s): 527755261, 096898370 Code(s): J15.9 - UNSPECIFIED BACTERIAL PNEUMONIA Status: Acute Current Visit: Yes (2) Suspected COVID-19 virus infection SNOMED Code(s): 673702649 Code(s): R68.89 - OTHER GENERAL SYMPTOMS AND SIGNS Status: Acute Current Visit: Yes (3) Acute hypoxemic respiratory failure SNOMED Code(s): 992916305 Code(s): J96.01 - ACUTE RESPIRATORY FAILURE WITH HYPOXIA Status: Acute Current Visit: Yes (4) Hyperkalemia SNOMED Code(s): 03351585 Code(s): E87.5 - HYPERKALEMIA Status: Acute Current Visit: Yes (5) Chronic kidney disease SNOMED Code(s): 354072451 Code(s): N18.9 - CHRONIC KIDNEY DISEASE, UNSPECIFIED Status: Acute Current Visit: Yes (6) Acute kidney injury SNOMED Code(s): 87861943, 62291119 Code(s): N17.9 - ACUTE KIDNEY FAILURE, UNSPECIFIED Status: Acute Current Visit: Yes (7) Hypertension SNOMED Code(s): 13616738 Code(s): I10 - ESSENTIAL (PRIMARY) HYPERTENSION Status: Acute Current Visit: Yes (8) Leukocytosis SNOMED Code(s): 275012997, 905931729 Code(s): D72.829 - ELEVATED WHITE BLOOD CELL COUNT, UNSPECIFIED Status: Acute Current Visit: Yes (9) Macrocytic anemia SNOMED Code(s): 42189972 Code(s): D53.9 - NUTRITIONAL ANEMIA, UNSPECIFIED Status: Acute Current Visit: Yes (10) Rheumatoid arthritis SNOMED Code(s): 02443085 Code(s): M06.9 - RHEUMATOID ARTHRITIS, UNSPECIFIED Status: Acute Current Visit: Yes (11) Lymphopenia SNOMED Code(s): 02600316 Code(s): D72.810 - LYMPHOCYTOPENIA Status: Acute Current Visit: Yes - Problem List Review Problem List Initiated/Reviewed/Updated: Yes - Plan Plan:: ASSESSMENT BY DAY Day of admission - Worsening respiratory status - Hypoxemic on admission to the ED--> required O2 supplementation via nasal cannula - Infiltrate on CXR on R middle lobe - K of 5.3 with tented T waves, no prior EKG to compare - On MTX for rheumatoid arthritis, last dose 09/2018 DAY1 - Leukocytosis worsened - Epistaxis episode - BP stable - Afebrile - Elevated procalcitonin - CTA negative for PE PLAN BY PROBLEMS Community acquired bacterial pneumonia Suspected COVID-19 virus infection Acute hypoxemic respiratory failure Leukocytosis with lymphopenia - Contninue Rocephin and Azithromycin daily - Sent out COVID test, f/u - Procalcitonin q48h - Maximum isolation - RT - As needed DuoNebs - O2 supplementation as needed - Scheduled Guaifenesin Epistaxis Thrombocytopenia - Rhino rockets - Monitor hb Acute kidney injury vs Acute on Chronic kidney disease Hyperkalemia - Calcium gluconate + insulin + D50 - Repeat EKG in AM - Monitor urine output renally dosed medications, avoid nephrotoxic agents Hypertension - Continue home meds once available - Hydralazine as needed PROPHYLAXIS DVT- Compression stockings GI- not indicated CODE STATUS: FULL CODE DISPOSITION: Patient will be admitted for IV antibiotics and O2 supplementation, pending rule out of COVID
[2019-05-14] MEDS: guaiFENesin 600 MG Tab.ER PO SCH ×2 (08:19→22:33)
--- NOTE | 2019-05-14 08:31 | PCM.PN ---
- General Info Date of Service: 05/14/19 Subjective Update: Had an episode of bleeding yesterday after which she coughed up a large clot twice, she became tachycardic and hypoxemic for which she was transferred to ICU. Slept in ICU Improved this morning Transferred out of ICU - Patient Data Vitals - Most Recent: Last Vital Signs Temp 98.3 F 05/14/19 04:00 Pulse 98 05/14/19 04:00 Resp 19 05/14/19 04:00 BP 124/71 05/14/19 04:00 Pulse Ox 98 05/14/19 04:00 Weight - Most Recent: 78.88 kg - Exam Quality Assessment: Supplemental Oxygen, DVT Prophylaxis General: Alert, No Acute Distress HEENT: Pupils Equal, Pupils Reactive, EOMI, Mucous Membr. Moist/[place] Neck: Supple, Trachea Midline, No JVD Lungs: Decreased Breath Sounds, Crackles, Rales, Rhonchi, Wheezing. No: Rub, Stridor Cardiovascular: Regular Rate, Regular Rhythm. No: Murmurs, Gallops, Rubs GI/Abdominal Exam: Distended. No: Guarding, Rigid, Rebound, Tender Extremities: Normal Inspection, Slow Capillary Refill. No: Pedal Edema Sepsis Event Note - Evaluation Sepsis Screening Result: No Definite Risk - Focused Exam Vital Signs: Vital Signs Temp Pulse Resp BP Pulse Ox 05/14/19 04:00 98.3 F 98 19 124/71 98 05/14/19 00:00 98.1 F 94 18 131/85 100 Date Exam was Performed: 05/14/19 Time Exam was Performed: 18:39 - Problem List & Annotations (1) Community acquired bacterial pneumonia SNOMED Code(s): 989117414, 287578116 Code(s): J15.9 - UNSPECIFIED BACTERIAL PNEUMONIA Status: Acute Current Visit: Yes (2) Suspected COVID-19 virus infection SNOMED Code(s): 866784130 Code(s): R68.89 - OTHER GENERAL SYMPTOMS AND SIGNS Status: Acute Current Visit: Yes (3) Acute hypoxemic respiratory failure SNOMED Code(s): 639750786 Code(s): J96.01 - ACUTE RESPIRATORY FAILURE WITH HYPOXIA Status: Acute Current Visit: Yes (4) Hyperkalemia SNOMED Code(s): 39402835 Code(s): E87.5 - HYPERKALEMIA Status: Acute Current Visit: Yes (5) Chronic kidney disease SNOMED Code(s): 254433059 Code(s): N18.9 - CHRONIC KIDNEY DISEASE, UNSPECIFIED Status: Acute Current Visit: Yes (6) Acute kidney injury SNOMED Code(s): 90505166, 70416626 Code(s): N17.9 - ACUTE KIDNEY FAILURE, UNSPECIFIED Status: Acute Current Visit: Yes (7) Hypertension SNOMED Code(s): 46005294 Code(s): I10 - ESSENTIAL (PRIMARY) HYPERTENSION Status: Acute Current Visit: Yes (8) Leukocytosis SNOMED Code(s): 642815802, 620645234 Code(s): D72.829 - ELEVATED WHITE BLOOD CELL COUNT, UNSPECIFIED Status: Acute Current Visit: Yes (9) Macrocytic anemia SNOMED Code(s): 37062166 Code(s): D53.9 - NUTRITIONAL ANEMIA, UNSPECIFIED Status: Acute Current Visit: Yes (10) Rheumatoid arthritis SNOMED Code(s): 36164481 Code(s): M06.9 - RHEUMATOID ARTHRITIS, UNSPECIFIED Status: Acute Current Visit: Yes (11) Lymphopenia SNOMED Code(s): 95354122 Code(s): D72.810 - LYMPHOCYTOPENIA Status: Acute Current Visit: Yes - Problem List Review Problem List Initiated/Reviewed/Updated: Yes - Plan Plan:: ASSESSMENT BY DAY Day of admission - Worsening respiratory status - Hypoxemic on admission to the ED--> required O2 supplementation via nasal cannula - Infiltrate on CXR on R middle lobe - K of 5.3 with tented T waves, no prior EKG to compare - On MTX for rheumatoid arthritis, last dose 09/2018 DAY1 - Leukocytosis worsened - Epistaxis episode, coughed up 2 large blood clots - BP stable - Afebrile - Elevated procalcitonin - CTA negative for PE - Altered mental status with bleeding episode for which she was transferred to ICU DAY 2 - Overnight improved - No more bleeding - Stable Hemoglobin - Transferred out of ICU PLAN BY PROBLEMS Community acquired bacterial pneumonia Suspected COVID-19 virus infection Acute hypoxemic respiratory failure Leukocytosis with lymphopenia - Contninue Rocephin and Azithromycin daily - Sent out COVID test, f/u - Procalcitonin q48h - Maximum isolation - RT - As needed DuoNebs - O2 supplementation as needed - Scheduled Guaifenesin Epistaxis Thrombocytopenia - Rhino rockets - Monitor hb Acute kidney injury vs Acute on Chronic kidney disease Hyperkalemia, resolved - Monitor urine output renally dosed medications, avoid nephrotoxic agents Hypertension - Continue home meds once available - Hydralazine as needed PROPHYLAXIS DVT- Compression stockings GI- not indicated CODE STATUS: FULL CODE DISPOSITION: Patient will be admitted for IV antibiotics and O2 supplementation, pending rule out of COVID
[2019-05-14] MEDS ORDERED: Azithromycin 500 MG in Sodium Chloride 0.9% 250 ML IV SCH (17:00)
--- NOTE | 2019-05-14 18:46 | PCM.PRNOTE ---
- Free Text/Narrative Note: Central Line Placement Date: 05/14/2019 Time: 17:45 Indication: Intravenous access Attending: Malika Khan MD A time-out was completed verifying correct patient, procedure, site, positioning , and special equipment if applicable. The patient was placed in a dependent position appropriate for central line placement based on the vein to be cannulated. The patients right neck was prepped and draped in sterile fashion. 1% Lidocaine was used to anesthetize the surrounding skin area. A triple lumen 7-[place] Cordis catheter was introduced into the the internal jugular using the Seldinger technique and under ultrasound guidance. The catheter was threaded smoothly over the guide wire and appropriate blood return was obtained. Each lumen of the catheter was evacuated of air and flushed with sterile saline. The catheter was then sutured in place to the skin and a sterile dressing applied. Perfusion to the extremity distal to the point of catheter insertion was checked and found to be adequate. Estimated Blood Loss: 10mL The patient tolerated the procedure well and there were no complications.
--- NOTE | 2019-05-14 18:52 | PCM.SN ---
- Free Text/Narrative Note: Around 5PM Was called by RN to come and evaluate patient who was with decreased responsiveness. Upon arrival to room patient was found to be less responsive compared to my evaluation in the AM She was difficult to arouse despite sternal rub and not following commands, she mumbles responses and is not making any sense. Vital signs: BP: 105/63 HR: 96 RR: 27 SatO2: 91% on 2L NC Tempo: 96.6 She was placed on non rebreather mask by nursing staff Ordered multiple lab tests, and after multiple attempts labor expediter informed me he was unable to get sample. I attempted sample draw and was unsuccessful. Decision was made to place central line. Consent was obtained. During the procedure patient continues to mumbles and not make sense with some episodes of gargling. Upon physical exam there is significantly diminished air entry in R lung field with rhonchi and crackles. Ordered - CT head - Repeat BMP, Mg, PO4, troponin, lactic acid, CBC - CXR - Abdominal XR - EKG
[2019-05-14] MEDS ORDERED: Levofloxacin/Dextrose 5%-Water 750 MG in Premix Bag 1 BAG IV SCH (19:00)
--- NOTE | 2019-05-14 19:38 | CR ---
Chest: Portable view of the chest was obtained. Comparison: Previous chest x-ray of 05/12/19. Increasing parenchymal density within the right upper lung. Right-sided pleural effusion and probable right lower lung parenchymal density is noted. Increased density within the left base is also noted and increased prior study. Increased central lung markings are also noted on both sides. Old healed right proximal humeral fracture is noted. Right jugular line is seen with tip lying at the right atrial and superior vena cava junction. Heart size is mildly enlarged. Impression: 1. Right-sided jugular line with tip lying at the right atrial and superior vena cava junction. 2. Worsening appearance of the chest as described above. Presumably representing worsening pleural effusion and worsening parenchymal densities (likely representing pneumonia) Diagnostic code #3 This report was dictated in MDT
--- NOTE | 2019-05-14 19:38 | CT ---
Head CT Technique: Multiple axial sections through the brain were obtained. Intravenous contrast was not utilized. Comparison: Prior head CT study of 06/05/10. Findings: Slight mucosal thickening is seen within the right maxillary sinus with small air-fluid levels. Diffuse mucosal thickening appears to be present within the nasal cavity. Possible small amount of fluid within the sphenoid sinus is noted. Ventricles along with basal cisterns and sulci over the convexities are mildly prominent. Mild diminished density is noted within portions of the periventricular and subcortical white matter compatible with small vessel ischemic demyelination change. No other abnormal parenchymal densities are seen. No evidence of intracranial hemorrhage. No midline shift or mass-effect is seen. Atherosclerotic calcification is seen within the carotid siphon and vertebral vessels. No acute calvarial abnormality is seen. Impression: 1. Sinus findings showing several air-fluid levels. Please correlate if patient has any findings of acute sinusitis. 2. Diffuse mucosal thickening within the nasal cavity. 3. Senescent change as noted above. 4. No acute intracranial abnormality is appreciated. Diagnostic code #3 This report was dictated in MDT
--- NOTE | 2019-05-14 19:38 | CR ---
Abdomen: Supine and upright views the abdomen were obtained. Comparison: No prior abdominal imaging is available. Scoliosis and degenerative change is noted within the spine. Gas is noted within nondilated small bowel and colon. This most likely represents a mild ileus. Bowel does not appear significantly dilated to indicate an obstruction. No free air is seen. Mild vascular calcification is seen. Impression: 1. Findings as noted above. 2. Nothing acute is appreciated. Diagnostic code #2 This report was dictated in MDT
[2019-05-14] MEDS ORDERED: Piperacillin/Tazobactam 4.5 GM in Sodium Chloride 0.9% 100 ML IV ONE (21:00)
[2019-05-15] MEDS ORDERED: Lidocaine 1% 20 ML MDV INJECT ONE (02:05)
[2019-05-15] MEDS ORDERED: Lidocaine 1% 10 ML MDV INJECT ONE (02:30)
[2019-05-15] MEDS ORDERED: Piperacillin/Tazobactam 4.5 GM in Sodium Chloride 0.9% 100 ML IV SCH (03:00)
--- NOTE | 2019-05-15 08:55 | PCM.PRNOTE ---
- Free Text/Narrative Note: Thoracentesis Date: 05/15/2019 Time: 8:20 Indication: Large right pleural effusion Attending: Malika Khan MD A time-out was completed verifying correct patient, procedure, site, positioning , and special equipment if applicable. The patients right side was prepped and draped in a sterile manner after the appropriate infiltration level was confirmed by ultrasound. 1% lidocaine was used anesthetize the surrounding skin. A finder needle was then used to locate fluid and dark bloody fluid was obtained. A 10-blade scalpel used to make the incision. The thoracentesis catheter was then threaded without difficulty. The patient had 1,000mL of clear yellow fluid removed. A post-procedure chest x-ray was ordered and the fluid will be sent for several studies. Estimated Blood Loss: 2-3mL from incision, not quantifiable from pleural fluid The patient tolerated the procedure well and there were no complications.
--- NOTE | 2019-05-15 08:55 | PCM.PN ---
- General Info Date of Service: 05/15/19 Subjective Update: Small mucus dark green BM today Very poor oral intake Slept OK Still on O2 supplementation - Patient Data Vitals - Most Recent: Last Vital Signs Temp 97.5 F 05/15/19 07:52 Pulse 90 05/15/19 07:52 Resp 20 05/15/19 07:52 BP 110/63 05/15/19 07:52 Pulse Ox 88 L 05/15/19 07:52 Weight - Most Recent: 78.063 kg - Exam General: Alert, Mild Distress. No: Oriented HEENT: Pupils Equal, Pupils Reactive, Mucous Membr. Moist/[place] Neck: No JVD Lungs: Other (decreased breath sounds on R lung, only audible on apex, occasional crackles and rales, no wheezing) GI/Abdominal Exam: Distended, Tender, Abnormal Bowel Sounds. No: Guarding, Rigid, Rebound Extremities: Non-Tender, Pedal Edema, Slow Capillary Refill Skin: Dry Neurological: No New Focal Deficit. No: Normal Speech Sepsis Event Note - Evaluation Sepsis Screening Result: No Definite Risk - Focused Exam Vital Signs: Vital Signs Temp Pulse Resp BP Pulse Ox 05/15/19 07:52 97.5 F 90 20 110/63 88 L 05/15/19 03:46 108 H 98 05/15/19 03:45 97.3 F 113 H 20 104/62 94 L 05/15/19 00:15 98.2 F 95 14 111/66 94 L 05/14/19 22:51 103 H 97 Date Exam was Performed: 05/15/19 Time Exam was Performed: 13:34 - Problem List & Annotations (1) Healthcare associated bacterial pneumonia SNOMED Code(s): 892028266 Code(s): J15.9 - UNSPECIFIED BACTERIAL PNEUMONIA Status: Acute Current Visit: Yes (2) Community acquired bacterial pneumonia SNOMED Code(s): 768083722, 430337511 Code(s): J15.9 - UNSPECIFIED BACTERIAL PNEUMONIA Status: Acute Current Visit: Yes (3) Suspected COVID-19 virus infection SNOMED Code(s): 106256847 Code(s): R68.89 - OTHER GENERAL SYMPTOMS AND SIGNS Status: Acute Current Visit: Yes (4) Acute hypoxemic respiratory failure SNOMED Code(s): 756315237 Code(s): J96.01 - ACUTE RESPIRATORY FAILURE WITH HYPOXIA Status: Acute Current Visit: Yes (5) Hyperkalemia SNOMED Code(s): 36937842 Code(s): E87.5 - HYPERKALEMIA Status: Acute Current Visit: Yes (6) Chronic kidney disease SNOMED Code(s): 381704140 Code(s): N18.9 - CHRONIC KIDNEY DISEASE, UNSPECIFIED Status: Acute Current Visit: Yes (7) Acute kidney injury SNOMED Code(s): 60560316, 83370527 Code(s): N17.9 - ACUTE KIDNEY FAILURE, UNSPECIFIED Status: Acute Current Visit: Yes (8) Hypertension SNOMED Code(s): 66639904 Code(s): I10 - ESSENTIAL (PRIMARY) HYPERTENSION Status: Acute Current Visit: Yes (9) Leukocytosis SNOMED Code(s): 270309102, 539898083 Code(s): D72.829 - ELEVATED WHITE BLOOD CELL COUNT, UNSPECIFIED Status: Acute Current Visit: Yes (10) Macrocytic anemia SNOMED Code(s): 41568787 Code(s): D53.9 - NUTRITIONAL ANEMIA, UNSPECIFIED Status: Acute Current Visit: Yes (11) Rheumatoid arthritis SNOMED Code(s): 12979792 Code(s): M06.9 - RHEUMATOID ARTHRITIS, UNSPECIFIED Status: Acute Current Visit: Yes (12) Lymphopenia SNOMED Code(s): 50885904 Code(s): D72.810 - LYMPHOCYTOPENIA Status: Acute Current Visit: Yes (13) Dementia SNOMED Code(s): 75281689 Code(s): F03.90 - UNSPECIFIED DEMENTIA WITHOUT BEHAVIORAL DISTURBANCE Status: Acute Current Visit: Yes (14) Type 2 myocardial infarction SNOMED Code(s): 90411745 Code(s): I21.A1 - MYOCARDIAL INFARCTION TYPE 2 Status: Acute Current Visit: Yes (15) Edema of right lower extremity SNOMED Code(s): 272861324 Code(s): R60.0 - LOCALIZED EDEMA Status: Acute Current Visit: Yes - Problem List Review Problem List Initiated/Reviewed/Updated: Yes - Plan Plan:: ASSESSMENT BY DAY Day of admission - Worsening respiratory status - Hypoxemic on admission to the ED--> required O2 supplementation via nasal cannula - Infiltrate on CXR on R middle lobe - K of 5.3 with tented T waves, no prior EKG to compare - On MTX for rheumatoid arthritis, last dose 09/2018 DAY1 - Leukocytosis worsened - Epistaxis episode, coughed up 2 large blood clots - BP stable - Afebrile - Elevated procalcitonin - CTA negative for PE - Altered mental status with bleeding episode for which she was transferred to ICU DAY 2 - Overnight improved - No more bleeding - Stable Hemoglobin - Transferred out of ICU - Rhino rockets removed DAY 3 - COVID reported negative but patient is highly likely to be infected with said virus, will repeat test in 48 hours - Altered mental status episode in the afternoon - Central line placed - Troponin elevation, trended down without changes in EKG likely 2/2 high demand ischemia - Lactic acid normal - Hospitalization > 48 hours, meets criteria for healthcare associated pneumonia - Significant right sided pleural effusion --> thoracentesis in AM - BP trend 85-171/62-81 - Elevated d dimer with negative CTA + history of [place] and recently being sedentary--> concern for DVT of RLE PLAN BY PROBLEMS Healthcare acquired bacterial pneumonia Suspected COVID-19 virus infection Acute hypoxemic respiratory failure Leukocytosis with lymphopenia Large right sided pleural effusion - Discontinue Rocephin and Azithromycin - Started on Levaquin, Zosyn and Vancomycin 05/14/19 - Continue Rocephin and Azithromycin daily - Thoracentesis today - Sputum culture - Continue maximum isolation - F/U procalcitonin - RT - As needed DuoNebs - O2 supplementation as needed - Scheduled Guaifenesin - Monitor temperature and panculture if temperature above 98.6 Type 2 miocardial infarction - Monitor vital signs - Monitor volume status and oxygenation Right lower extremity edema - BL lower extremity Doppler today Macrocytic anemia Thrombocytopenia - B12 and folate level - Monitor hb Acute kidney injury vs Acute on Chronic kidney disease Hyperkalemia, resolved - Monitor urine output renally dosed medications, avoid nephrotoxic agents Hypertension - Continue home meds once available - Hydralazine as needed Epistaxis, resolved PROPHYLAXIS DVT- Compression stockings/SCDs GI- not indicated CODE STATUS: FULL CODE DISPOSITION: Patient will remain admitted for IV antibiotics, isolation and test results. PT/OT consult placed Speech therapy consulted Case management and social workers aware of case Prognosis is very guarded at this time
[2019-05-15] MEDS: guaiFENesin 600 MG Tab.ER PO SCH ×2 (09:05→20:20)
--- NOTE | 2019-05-15 09:35 | CR ---
Chest: Portable view of the chest was obtained. Comparison: Prior chest x-ray of 05/14/19. Right upper lobe parenchymal density is seen. Improved aeration of the right lung base with minimal right-sided pleural effusion. No pneumothorax is seen. Considerable increased density within the left base remains. Right jugular line is noted. Heart size and mediastinum are stable. Impression: 1. Improved aeration of the right lung base compatible with interval thoracentesis. 2. Continuing density within the left base and right upper lung. 3. Stable right jugular line. Diagnostic code #3 This report was dictated in MDT
[2019-05-15] MEDS: Piperacillin/Tazobactam 4.5 GM in Sodium Chloride 0.9% 100 ML IV SCH ×2 (11:51→19:20)
--- NOTE | 2019-05-15 12:02 | US ---
Bilateral lower extremity deep venous ultrasound: Duplex and color Doppler evaluation was obtained of the right left common femoral, proximal greater saphenous, superficial femoral, popliteal, posterior tibial and peroneal veins. Findings: Right peroneal vein was not visualized. Other vein show normal phasic flow, augmentation and compression. Impression: 1. Nonvisualized right peroneal vein. 2. No evidence of deep venous thrombosis is seen within either the right or left lower extremity. Diagnostic code #2 This report was dictated in MDT
[2019-05-15] MEDS ORDERED: Lactated Ringers 500 ML IV ONE ×2 (16:52→20:42)
[2019-05-15] MEDS ORDERED: Lactated Ringers 1,000 ML ONE (17:00)
[2019-05-15] MEDS ORDERED: Lactated Ringers 1,000 ML IV SCH (17:00)
[2019-05-16 01:30] VITALS: BP 93/50; PULSE 106
--- NOTE | 2019-05-16 02:10 | PCM.SN ---
- Free Text/Narrative Note: INTERVAL HISTORY Called in by nursing staff for worsening mental status with hypoxemia As per nursing staff patient started getting more altered and refusing to keep O2 via NRB on She was switched to nasal cannula Lactic acid started rising earlier in the day and continued to rise despite conservative fluid repletion Upon my arrival patient was - Alert - Not following commands - Tachypneic - Audible crackles with retractions and abdominal breathing - O2 sats in low 90s with 5L NC - BP with MAP of 57 - Unable to obtain ABGs due to BP being los Call was made to son, Ike, who got in touch with , Gavin - I explained current clinical status and overall prognosis of patient - Answered all questions - They voiced that patient would not want any heroic measures and agreed to change her code status to DNR/DNI They asked if they could come in to visit, upon review of policy I authorized them to come in and visit while wearing maximum precautions except for N95 masks since they have not been fitted for them
[2019-05-16] MEDS ORDERED: Carboxymethylcellulose Sodium 1% Ophth Gel 15 ML Bottle EYEBOTH PRN (03:20)
[2019-05-16] MEDS ORDERED: Haloperidol Lactate 5 MG/ML SDV IVPUSH PRN (03:20)
[2019-05-16] MEDS ORDERED: Ondansetron 4 MG/2 ML SDV IVPUSH PRN (03:20)
[2019-05-16] MEDS ORDERED: Scopolamine 1.5 MG Transdermal Patch TRDERM PRN (03:20)
[2019-05-16] MEDS ORDERED: Metoclopramide 10 MG Tab PO PRN (03:20)
[2019-05-16] MEDS ORDERED: LORazepam 2 MG/ML SDV IVPUSH PRN ×2 (03:20→08:53)
[2019-05-16] MEDS: Piperacillin/Tazobactam 4.5 GM in Sodium Chloride 0.9% 100 ML IV SCH (04:00)
[2019-05-16] MEDS: Morphine 2 MG/ML Syringe IVPUSH PRN ×6 (08:29→23:46)
[2019-05-16] MEDS: Atropine Sulfate Ophth 2 ML Drops SL PRN ×4 (11:05→21:33)
--- NOTE | 2019-05-16 19:21 | PCM.PN ---
- General Info Date of Service: 05/16/19 Subjective Update: Comfortable On Morphine and Ativan, got one dose of each - Patient Data Vitals - Most Recent: Last Vital Signs Temp 97.9 F 05/15/19 20:17 Pulse 106 H 05/16/19 01:14 Resp 32 H 05/16/19 01:14 BP 93/50 L 05/16/19 01:14 Pulse Ox 99 05/16/19 01:14 Weight - Most Recent: 78.018 kg Comments:: LIMITED PHYSICAL EXAM DUE TO COMFORT MEASURES STATUS - Exam Quality Assessment: Supplemental Oxygen General: Mild Distress, Moderate Distress. No: Alert, Oriented Neck: Supple Lungs: Decreased Breath Sounds, Crackles Cardiovascular: Tachycardia. No: Murmurs, Gallops, Rubs Sepsis Event Note - Evaluation Sepsis Screening Result: Severe Sepsis Risk - Problem List & Annotations (1) Comfort measures only status SNOMED Code(s): 79368577459928 Code(s): Z51.5 - ENCOUNTER FOR PALLIATIVE CARE Status: Acute Current Visit: Yes (2) Healthcare associated bacterial pneumonia SNOMED Code(s): 520448225 Code(s): J15.9 - UNSPECIFIED BACTERIAL PNEUMONIA Status: Acute Current Visit: Yes (3) Community acquired bacterial pneumonia SNOMED Code(s): 459440445, 496252348 Code(s): J15.9 - UNSPECIFIED BACTERIAL PNEUMONIA Status: Acute Current Visit: Yes (4) Suspected COVID-19 virus infection SNOMED Code(s): 971497681 Code(s): R68.89 - OTHER GENERAL SYMPTOMS AND SIGNS Status: Acute Current Visit: Yes (5) Acute hypoxemic respiratory failure SNOMED Code(s): 830974958 Code(s): J96.01 - ACUTE RESPIRATORY FAILURE WITH HYPOXIA Status: Acute Current Visit: Yes (6) Hyperkalemia SNOMED Code(s): 27171329 Code(s): E87.5 - HYPERKALEMIA Status: Acute Current Visit: Yes (7) Chronic kidney disease SNOMED Code(s): 416309422 Code(s): N18.9 - CHRONIC KIDNEY DISEASE, UNSPECIFIED Status: Acute Current Visit: Yes (8) Acute kidney injury SNOMED Code(s): 84804055, 76732245 Code(s): N17.9 - ACUTE KIDNEY FAILURE, UNSPECIFIED Status: Acute Current Visit: Yes (9) Hypertension SNOMED Code(s): 42812456 Code(s): I10 - ESSENTIAL (PRIMARY) HYPERTENSION Status: Acute Current Visit: Yes (10) Leukocytosis SNOMED Code(s): 880753789, 797893746 Code(s): D72.829 - ELEVATED WHITE BLOOD CELL COUNT, UNSPECIFIED Status: Acute Current Visit: Yes (11) Macrocytic anemia SNOMED Code(s): 75155217 Code(s): D53.9 - NUTRITIONAL ANEMIA, UNSPECIFIED Status: Acute Current Visit: Yes (12) Rheumatoid arthritis SNOMED Code(s): 18618737 Code(s): M06.9 - RHEUMATOID ARTHRITIS, UNSPECIFIED Status: Acute Current Visit: Yes (13) Lymphopenia SNOMED Code(s): 22907831 Code(s): D72.810 - LYMPHOCYTOPENIA Status: Acute Current Visit: Yes (14) Dementia SNOMED Code(s): 75814483 Code(s): F03.90 - UNSPECIFIED DEMENTIA WITHOUT BEHAVIORAL DISTURBANCE Status: Acute Current Visit: Yes (15) Type 2 myocardial infarction SNOMED Code(s): 09629224 Code(s): I21.A1 - MYOCARDIAL INFARCTION TYPE 2 Status: Acute Current Visit: Yes (16) Edema of right lower extremity SNOMED Code(s): 587994881 Code(s): R60.0 - LOCALIZED EDEMA Status: Acute Current Visit: Yes - Problem List Review Problem List Initiated/Reviewed/Updated: Yes - Plan Plan:: ASSESSMENT BY DAY Day of admission - Worsening respiratory status - Hypoxemic on admission to the ED--> required O2 supplementation via nasal cannula - Infiltrate on CXR on R middle lobe - K of 5.3 with tented T waves, no prior EKG to compare - On MTX for rheumatoid arthritis, last dose 09/2018 DAY1 - Leukocytosis worsened - Epistaxis episode, coughed up 2 large blood clots - BP stable - Afebrile - Elevated procalcitonin - CTA negative for PE - Altered mental status with bleeding episode for which she was transferred to ICU DAY 2 - Overnight improved - No more bleeding - Stable Hemoglobin - Transferred out of ICU - Rhino rockets removed DAY 3 - COVID reported negative but patient is highly likely to be infected with said virus, will repeat test in 48 hours - Altered mental status episode in the afternoon - Central line placed - Troponin elevation, trended down without changes in EKG likely 2/2 high demand ischemia - Lactic acid normal - Hospitalization > 48 hours, meets criteria for healthcare associated pneumonia - Significant right sided pleural effusion --> thoracentesis in AM - BP trend 85-171/62-81 - Elevated d dimer with negative CTA + history of [employer] [address] and recently being sedentary--> concern for DVT of RLE DAY 4 - Hypoxemic and altered mental status around midnight, came in to evaluate patient - Refer to note from earlier today for details - Case discussed with and son, patient made comfort measures PLAN BY PROBLEMS Comfort care status - Discontinue all current interventions - Vitals every shift - PRN morphine, alprazolam, atropine and scopolamine - Pleasure feeds, ok to eat anything she requests - Continue O2 for now - Discharge planning for hospice placement - Discontinue prophylaxis - No more therapy evaluations Healthcare acquired bacterial pneumonia Suspected COVID-19 virus infection Acute hypoxemic respiratory failure Leukocytosis with lymphopenia Large right sided pleural effusion Type 2 miocardial infarction Right lower extremity edema Macrocytic anemia Thrombocytopenia Acute kidney injury vs Acute on Chronic kidney disease Hyperkalemia, resolved Hypertension Epistaxis, resolved PROPHYLAXIS DVT- Compression stockings/SCDs GI- not indicated CODE STATUS: COMFORT CARE DISPOSITION: Patient will remain admitted pending stabilization and transfer to hospice.
[2019-05-17] MEDS: Morphine 2 MG/ML Syringe IVPUSH PRN ×4 (01:48→11:59)
--- NOTE | 2019-05-17 10:25 | PCM.PN ---
- General Info Date of Service: 05/17/19 - Patient Data Vitals - Most Recent: Last Vital Signs Temp 97.9 F 05/15/19 20:17 Pulse 106 H 05/16/19 01:14 Resp 32 H 05/16/19 01:14 BP 93/50 L 05/16/19 01:14 Pulse Ox 99 05/16/19 01:14 Weight - Most Recent: 172 lb I&O - Last 24 Hours: Intake & Output 05/16/19 05/17/19 05/17/19 22:59 06:59 14:59 Intake Total 0 0 Output Total 700 250 Balance -700 -250 Lab Results Last 24 Hours: Laboratory Results - last 24 hr 05/15/19 05/15/19 Range/Units 08:40 08:40 Miscellaneous Test See comments See comments Andrew Results Last 24 Hours: Microbiology 05/15/19 08:40 Gram Stain - Final Pleural Fluid - Pleural Cavity, Right Body Fluid Culture - Preliminary NO GROWTH AFTER 2 DAYS 05/15/19 19:40 Aerobic Blood Culture - Preliminary Blood - Venous NO GROWTH AFTER 1 DAY Anaerobic Blood Culture - Preliminary NO GROWTH AFTER 1 DAY 05/15/19 19:19 Aerobic Blood Culture - Preliminary Blood - Venous NO GROWTH AFTER 1 DAY Anaerobic Blood Culture - Preliminary NO GROWTH AFTER 1 DAY 05/15/19 19:35 Aerobic Blood Culture - Preliminary Blood - Venous - Lab Draw NO GROWTH AFTER 1 DAY Anaerobic Blood Culture - Preliminary NO GROWTH AFTER 1 DAY 05/12/19 18:50 Aerobic Blood Culture - Preliminary Blood - Venous - Lab Draw NO GROWTH AFTER 4 DAYS Anaerobic Blood Culture - Preliminary NO GROWTH AFTER 4 DAYS 05/12/19 18:11 Aerobic Blood Culture - Preliminary Blood - Venous NO GROWTH AFTER 4 DAYS Anaerobic Blood Culture - Preliminary NO GROWTH AFTER 4 DAYS 05/13/19 17:03 Aerobic Blood Culture - Preliminary Blood - Venous - Lab Draw NO GROWTH AFTER 3 DAYS Anaerobic Blood Culture - Preliminary NO GROWTH AFTER 3 DAYS 05/13/19 16:43 Aerobic Blood Culture - Preliminary Blood - Venous NO GROWTH AFTER 3 DAYS Anaerobic Blood Culture - Final Med Orders - Current: Current Medications Acetaminophen (Tylenol) 650 mg PO Q4H PRN PRN Reason: Pain (Mild 1-3)/fever Albuterol/Ipratropium (Duoneb 3.0-0.5 Mg/3 Ml) 3 ml NEB Q4HRRT PRN PRN Reason: Wheezing Last Admin: 04/07/20 01:11 Dose: 3 ml Artificial Tears (Refresh Liquigel 1%) 0 ml EYEBOTH QID PRN; Protocol PRN Reason: Dry Eyes Atropine Sulfate (Atropine 1%) 0 ml SL Q2H PRN PRN Reason: EXCESSIVE SECRETIONS Last Admin: 05/16/19 21:33 Dose: 2 drop Haloperidol Lactate (Haldol) 1 mg IVPUSH Q1H PRN PRN Reason: delirium or restlessness Lorazepam (Ativan) 1 mg IVPUSH Q1H PRN PRN Reason: Anxiety Metoclopramide HCl (Reglan) 10 mg PO Q6H PRN PRN Reason: Nausea Miscellaneous Information (Remove Patch) 1 ea TRDERM Q72H [facility] Morphine Sulfate (Morphine) 2 mg IVPUSH Q30M PRN PRN Reason: Pain or Shortness of breath Last Admin: 05/17/19 08:22 Dose: 2 mg Ondansetron HCl (Zofran Odt) 4 mg PO Q4H PRN PRN Reason: nausea, able to take PO Ondansetron HCl (Zofran) 4 mg IVPUSH Q8H PRN PRN Reason: Nausea Scopolamine (Transderm-Scop) 1.5 mg TRDERM Q72H PRN PRN Reason: Secretions Discontinued Medications Benzonatate (Tessalon Perles) 100 mg PO TID PRN PRN Reason: Cough Calcium Gluconate (Calcium Gluconate) 1 gm IVPUSH ONETIME ONE Stop: 05/12/19 19:24 Last Admin: 05/12/19 19:34 Dose: 1 gm Dextrose/Water (Dextrose 50% In Water) 50 ml IVPUSH ASDIRECTED STA Stop: 05/12/19 19:24 Last Admin: 05/12/19 19:54 Dose: 50 ml Guaifenesin (Mucinex) 600 mg PO BID [facility] Last Admin: 05/15/19 20:20 Dose: 600 mg Hydralazine HCl (Apresoline) 10 mg IVPUSH Q2H PRN PRN Reason: Hypertension Azithromycin 500 mg/ Sodium (Chloride) 250 mls @ 250 mls/hr IV ONETIME ONE Stop: 05/12/19 20:11 Last Admin: 05/12/19 20:35 Dose: 250 mls/hr Ceftriaxone Sodium 2 gm/ (Sodium Chloride) 100 mls @ 200 mls/hr IV Q24H [facility] Last Admin: 05/13/19 20:49 Dose: Not Given Sodium Chloride (Normal Saline) 100 mls @ 80 mls/hr IV ASDIRECTED [facility] Sodium Chloride (Normal Saline) 500 mls @ 999 mls/hr IV .BOLUS ONE Stop: 05/12/19 19:56 Last Admin: 05/12/19 19:59 Dose: 999 mls/hr Lactated Ringer's (Ringers, Lactated) 1,000 mls @ 125 mls/hr IV ASDIRECTED [facility] Sodium Chloride (Normal Saline) 100 mls @ 80 mls/hr IV ASDIRECTED [facility] Last Admin: 05/12/19 21:42 Dose: 80 mls/hr Lactated Ringer's (Ringers, Lactated) 1,000 mls @ 999 mls/hr IV ONETIME ONE Stop: 05/12/19 23:45 Last Admin: 05/12/19 23:20 Dose: 999 mls/hr Lactated Ringer's (Ringers, Lactated) 1,000 mls @ 150 mls/hr IV ASDIRECTED [facility] Last Admin: 05/13/19 12:35 Dose: 150 mls/hr Azithromycin 500 mg/ Sodium (Chloride) 250 mls @ 250 mls/hr IV Q24H [facility] Last Admin: 05/14/19 19:41 Dose: Not Given Levofloxacin/Dextrose 750 mg/ (Premix) 150 mls @ 100 mls/hr IV Q48H [facility] Last Admin: 05/14/19 19:41 Dose: 100 mls/hr Piperacillin Sod/Tazobactam (Sod 4.5 gm/ Sodium Chloride) 100 mls @ 25 mls/hr IV Q8H [facility] Last Admin: 05/15/19 02:34 Dose: 25 mls/hr Vancomycin HCl 1 gm/ Sodium (Chloride) 250 mls @ 250 mls/hr IV Q24H [facility] Last Admin: 05/14/19 22:34 Dose: 250 mls/hr Piperacillin Sod/Tazobactam (Sod 4.5 gm/ Sodium Chloride) 100 mls @ 200 mls/hr IV ONETIME ONE Stop: 05/14/19 21:29 Last Admin: 05/14/19 22:34 Dose: 200 mls/hr Piperacillin Sod/Tazobactam (Sod 4.5 gm/ Sodium Chloride) 100 mls @ 25 mls/hr IV Q8H [facility] Last Admin: 05/16/19 04:00 Dose: Not Given Vancomycin HCl 1 gm/ Sodium (Chloride) 250 mls @ 250 mls/hr IV Q24H [facility] Last Admin: 05/15/19 20:59 Dose: 250 mls/hr Lactated Ringer's (Ringers, Lactated) 500 mls @ 500 mls/hr IV .BOLUS ONE Stop: 05/15/19 17:51 Last Admin: 05/15/19 17:12 Dose: 500 mls/hr Lactated Ringer's (Ringers, Lactated) 1,000 mls @ 75 mls/hr IV ASDIRECTED [facility] Lactated Ringer's (Ringers, Lactated) Confirm Administered Dose 1,000 mls @ as directed .ROUTE .STK-MED ONE Stop: 05/15/19 17:01 Last Admin: 05/15/19 17:13 Dose: Not Given Lactated Ringer's (Ringers, Lactated) 500 mls @ 999 mls/hr IV ONETIME ONE Stop: 05/15/19 21:12 Last Admin: 05/15/19 20:57 Dose: 999 mls/hr Insulin Human Regular (Humulin R) 10 unit IV ONETIME ONE Stop: 05/12/19 19:24 Last Admin: 05/12/19 19:54 Dose: 10 unit Iopamidol (Isovue-370 (76%)) 100 ml IVPUSH ONETIME ONE Stop: 05/12/19 19:26 Last Admin: 05/12/19 21:23 Dose: 100 ml Lidocaine HCl (Xylocaine 1%) 20 ml INJECT ONETIME ONE Stop: 05/15/19 02:31 Last Admin: 05/15/19 09:46 Dose: Not Given Lorazepam (Ativan) 1 mg IVPUSH Q15M PRN PRN Reason: Anxiety Last Admin: 05/16/19 05:13 Dose: 1 mg Methotrexate (Methotrexate) 15 mg PO [facility] Ondansetron HCl (Zofran) 4 mg IV Q6H PRN PRN Reason: Nausea/Vomiting Vancomycin HCl (Pharmacy To Dose - Vancomycin) 1 dose .XX ASDIRECTED PRN PRN Reason: RX TO DOSE VANCO Sepsis Event Note - Evaluation Sepsis Screening Result: Severe Sepsis Risk - Problem List Review Problem List Initiated/Reviewed/Updated: Yes - Plan Plan:: ASSESSMENT BY DAY Day of admission - Worsening respiratory status - Hypoxemic on admission to the ED--> required O2 supplementation via nasal cannula - Infiltrate on CXR on R middle lobe - K of 5.3 with tented T waves, no prior EKG to compare - On MTX for rheumatoid arthritis, last dose 09/2018 DAY1 - Leukocytosis worsened - Epistaxis episode, coughed up 2 large blood clots - BP stable - Afebrile - Elevated procalcitonin - CTA negative for PE - Altered mental status with bleeding episode for which she was transferred to ICU DAY 2 - Overnight improved - No more bleeding - Stable Hemoglobin - Transferred out of ICU - Rhino rockets removed DAY 3 - COVID reported negative but patient is highly likely to be infected with said virus, will repeat test in 48 hours - Altered mental status episode in the afternoon - Central line placed - Troponin elevation, trended down without changes in EKG likely 2/2 high demand ischemia - Lactic acid normal - Hospitalization > 48 hours, meets criteria for healthcare associated pneumonia - Significant right sided pleural effusion --> thoracentesis in AM - BP trend 85-171/62-81 - Elevated d dimer with negative CTA + history of [employer] [address] and recently being sedentary--> concern for DVT of RLE DAY 4 - Hypoxemic and altered mental status around midnight, came in to evaluate patient - Refer to note from earlier today for details - Case discussed with and son, patient made comfort measures PLAN BY PROBLEMS Comfort care status - Discontinue all current interventions - Vitals every shift - change all PRN to oral/rectal/topical morphine, alprazolam, atropine and scopolamine - Pleasure feeds, ok to eat anything she requests - Continue O2 for now - Discharge planning for hospice placement - Discontinue prophylaxis - No more therapy evaluations Healthcare acquired bacterial pneumonia Suspected COVID-19 virus infection Acute hypoxemic respiratory failure Leukocytosis with lymphopenia Large right sided pleural effusion Type 2 miocardial infarction Right lower extremity edema Macrocytic anemia Thrombocytopenia Acute kidney injury vs Acute on Chronic kidney disease Hyperkalemia, resolved Hypertension Epistaxis, resolved PROPHYLAXIS DVT- Compression stockings/SCDs GI- not indicated CODE STATUS: COMFORT CARE DISPOSITION: Patient will remain admitted pending stabilization and transfer to hospice. LOS > 96 hours due to change to comfort care.
--- NOTE | 2019-05-17 17:59 | PCM.DCSUM1 ---
Discharge Summary - Hospital Course HPI Initial Comments: This is an 83 year old female with past medical history of hypertension and rheumatoid arthritis who comes to the ED complaining of decreased appetite, dry cough, runny nose for approximately 2 weeks. As per patient she was in usual state of health up to 2 weeks ago when she started feeling worsening fatigue, decreased appetite, weakness, difficulty sleeping. Denies fevers, chest pain, dizziness, shortness of breath, extremity edema, or pain with walking. She was in [place] 2 weeks ago and she was having some epistaxis episodes that spontaneously resolved. She was in [place] for 3 months, rents a condo in a assisted community. Once she arrived home 2 weeks ago (drove up, did not fly) she started feeling " lousy". 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 - Discharge Data Discharge Date: 05/17/19 Discharge Disposition: 20 Condition: - Referral to Home Health Primary Care Physician: PCP None - Patient Summary/Data Consults: Consultations 05/12/19 19:54 Respiratory Care Assess and Treatment [CONS] Routine Hospital Course: Day of admission - Worsening respiratory status - Hypoxemic on admission to the ED--> required O2 supplementation via nasal cannula - Infiltrate on CXR on R middle lobe - K of 5.3 with tented T waves, no prior EKG to compare - On MTX for rheumatoid arthritis, last dose 09/2018 DAY1 - Leukocytosis worsened - Epistaxis episode, coughed up 2 large blood clots - BP stable - Afebrile - Elevated procalcitonin - CTA negative for PE - Altered mental status with bleeding episode for which she was transferred to ICU DAY 2 - Overnight improved - No more bleeding - Stable Hemoglobin - Transferred out of ICU - Rhino rockets removed DAY 3 - COVID reported negative but patient is highly likely to be infected with said virus, will repeat test in 48 hours - Altered mental status episode in the afternoon - Central line placed - Troponin elevation, trended down without changes in EKG likely 2/2 high demand ischemia - Lactic acid normal - Hospitalization > 48 hours, meets criteria for healthcare associated pneumonia - Significant right sided pleural effusion --> thoracentesis in AM - BP trend 85-171/62-81 - Elevated d dimer with negative CTA + history of [facility] and recently being sedentary--> concern for DVT of RLE DAY 4 - Hypoxemic and altered mental status around midnight, came in to evaluate patient - Refer to note from earlier today for details - Case discussed with and son, patient made comfort measures DAY 5 - Patient on comfort care - at 1310 on 05/17/2019 Healthcare acquired bacterial pneumonia Acute hypoxemic respiratory failure Leukocytosis with lymphopenia Large right sided pleural effusion Type 2 miocardial infarction Right lower extremity edema Macrocytic anemia Thrombocytopenia Acute kidney injury vs Acute on Chronic kidney disease Hyperkalemia, resolved Hypertension Epistaxis, resolved - Discharge Plan *PRESCRIPTION DRUG MONITORING PROGRAM REVIEWED*: No *COPY OF PRESCRIPTION DRUG MONITORING REPORT IN PATIENT EROS: No Home Medications: Home Meds Aspirin [Ecotrin EC] 81 mg PO DAILY 06/30/16 [History] Cholecalciferol (Vitamin D3) [Vitamin D3] 2,000 unit PO DAILY 06/30/16 [History] Folic Acid 3,000 mcg PO DAILY 06/30/16 [History] Losartan/Hydrochlorothiazide [Losartan-HCTZ 50-12.5 MG] 0.5 tab PO DAILY [History] Methotrexate Sodium [Methotrexate] 15 mg PO TH 06/30/16 [History] Unadilla-3 Acid Ethyl Esters [Lovaza] 1 g PO BID 06/30/16 [History] Pravastatin Sodium 80 mg PO DAILY 06/30/16 [History] buPROPion [Wellbutrin XL] 150 mg PO DAILY 06/30/16 [History] Alendronate [Fosamax] 70 mg PO ASDIRECTED 05/13/19 [History] Cholecalciferol (Vitamin D3) [Vitamin D] 5,000 intunit PO DAILY 05/13/19 [ History] Naltrexone 4.5 mg PO BEDTIME 05/13/19 [History] Patient Handouts: Sepsis, Diagnosis, Adult Forms: ED Department Discharge Referrals: Faina Reyes NP [Ordering Only Provider] - Og Amador MD [Physician] - Coral Lopez PA [Ordering Only Provider] - - Discharge Summary/Plan Comment DC Time >30 min.: No - Patient Data Vitals - Most Recent: Last Vital Signs Temp 97.9 F 05/15/19 20:17 Pulse 106 H 05/16/19 01:14 Resp 32 H 05/16/19 01:14 BP 93/50 L 05/16/19 01:14 Pulse Ox 99 05/16/19 01:14 Weight - Most Recent: 172 lb I&O - Last 24 hours: Intake & Output 05/17/19 05/17/19 05/17/19 06:59 14:59 22:59 Intake Total 0 Output Total 250 Balance -250 Lab Results - Last 24 hrs: Laboratory Results - last 24 hr 05/15/19 05/15/19 Range/Units 08:40 08:40 Miscellaneous Test See comments See comments CHRISTINE Results - Last 24 hrs: Microbiology 05/13/19 17:03 Aerobic Blood Culture - Preliminary Blood - Venous - Lab Draw NO GROWTH AFTER 4 DAYS Anaerobic Blood Culture - Preliminary NO GROWTH AFTER 4 DAYS 05/13/19 16:43 Aerobic Blood Culture - Preliminary Blood - Venous NO GROWTH AFTER 4 DAYS Anaerobic Blood Culture - Final 05/15/19 08:40 Gram Stain - Final Pleural Fluid - Pleural Cavity, Right Body Fluid Culture - Preliminary NO GROWTH AFTER 2 DAYS 05/15/19 19:40 Aerobic Blood Culture - Preliminary Blood - Venous NO GROWTH AFTER 1 DAY Anaerobic Blood Culture - Preliminary NO GROWTH AFTER 1 DAY 05/15/19 19:19 Aerobic Blood Culture - Preliminary Blood - Venous NO GROWTH AFTER 1 DAY Anaerobic Blood Culture - Preliminary NO GROWTH AFTER 1 DAY 05/15/19 19:35 Aerobic Blood Culture - Preliminary Blood - Venous - Lab Draw NO GROWTH AFTER 1 DAY Anaerobic Blood Culture - Preliminary NO GROWTH AFTER 1 DAY 05/12/19 18:50 Aerobic Blood Culture - Preliminary Blood - Venous - Lab Draw NO GROWTH AFTER 4 DAYS Anaerobic Blood Culture - Preliminary NO GROWTH AFTER 4 DAYS 05/12/19 18:11 Aerobic Blood Culture - Preliminary Blood - Venous NO GROWTH AFTER 4 DAYS Anaerobic Blood Culture - Preliminary NO GROWTH AFTER 4 DAYS Med Orders - Current: Current Medications Discontinued Medications Acetaminophen (Tylenol) 650 mg PO Q4H PRN PRN Reason: Pain (Mild 1-3)/fever Albuterol/Ipratropium (Duoneb 3.0-0.5 Mg/3 Ml) 3 ml NEB Q4HRRT PRN PRN Reason: Wheezing Last Admin: 05/16/19 01:11 Dose: 3 ml Artificial Tears (Refresh Liquigel 1%) 0 ml EYEBOTH QID PRN; Protocol PRN Reason: Dry Eyes Atropine Sulfate (Atropine 1%) 0 ml SL Q2H PRN PRN Reason: EXCESSIVE SECRETIONS Last Admin: 05/16/19 21:33 Dose: 2 drop Benzonatate (Tessalon Perles) 100 mg PO TID PRN PRN Reason: Cough Calcium Gluconate (Calcium Gluconate) 1 gm IVPUSH ONETIME ONE Stop: 05/12/19 19:24 Last Admin: 05/12/19 19:34 Dose: 1 gm Dextrose/Water (Dextrose 50% In Water) 50 ml IVPUSH ASDIRECTED STA Stop: 05/12/19 19:24 Last Admin: 05/12/19 19:54 Dose: 50 ml Guaifenesin (Mucinex) 600 mg PO BID LORENZO Last Admin: 05/15/19 20:20 Dose: 600 mg Haloperidol Lactate (Haldol) 1 mg IVPUSH Q1H PRN PRN Reason: delirium or restlessness Hydralazine HCl (Apresoline) 10 mg IVPUSH Q2H PRN PRN Reason: Hypertension Azithromycin 500 mg/ Sodium (Chloride) 250 mls @ 250 mls/hr IV ONETIME ONE Stop: 05/12/19 20:11 Last Admin: 05/12/19 20:35 Dose: 250 mls/hr Ceftriaxone Sodium 2 gm/ (Sodium Chloride) 100 mls @ 200 mls/hr IV Q24H [facility] Last Admin: 05/13/19 20:49 Dose: Not Given Sodium Chloride (Normal Saline) 100 mls @ 80 mls/hr IV ASDIRECTED [facility] Sodium Chloride (Normal Saline) 500 mls @ 999 mls/hr IV .BOLUS ONE Stop: 05/12/19 19:56 Last Admin: 05/12/19 19:59 Dose: 999 mls/hr Lactated Ringer's (Ringers, Lactated) 1,000 mls @ 125 mls/hr IV ASDIRECTED LORENZO Sodium Chloride (Normal Saline) 100 mls @ 80 mls/hr IV ASDIRECTED [facility] Last Admin: 05/12/19 21:42 Dose: 80 mls/hr Lactated Ringer's (Ringers, Lactated) 1,000 mls @ 999 mls/hr IV ONETIME ONE Stop: 05/12/19 23:45 Last Admin: 05/12/19 23:20 Dose: 999 mls/hr Lactated Ringer's (Ringers, Lactated) 1,000 mls @ 150 mls/hr IV ASDIRECTED [facility] Last Admin: 05/13/19 12:35 Dose: 150 mls/hr Azithromycin 500 mg/ Sodium (Chloride) 250 mls @ 250 mls/hr IV Q24H [facility] Last Admin: 05/14/19 19:41 Dose: Not Given Levofloxacin/Dextrose 750 mg/ (Premix) 150 mls @ 100 mls/hr IV Q48H [facility] Last Admin: 05/14/19 19:41 Dose: 100 mls/hr Piperacillin Sod/Tazobactam (Sod 4.5 gm/ Sodium Chloride) 100 mls @ 25 mls/hr IV Q8H [facility] Last Admin: 05/15/19 02:34 Dose: 25 mls/hr Vancomycin HCl 1 gm/ Sodium (Chloride) 250 mls @ 250 mls/hr IV Q24H [facility] Last Admin: 05/14/19 22:34 Dose: 250 mls/hr Piperacillin Sod/Tazobactam (Sod 4.5 gm/ Sodium Chloride) 100 mls @ 200 mls/hr IV ONETIME ONE Stop: 05/14/19 21:29 Last Admin: 05/14/19 22:34 Dose: 200 mls/hr Piperacillin Sod/Tazobactam (Sod 4.5 gm/ Sodium Chloride) 100 mls @ 25 mls/hr IV Q8H [facility] Last Admin: 05/16/19 04:00 Dose: Not Given Vancomycin HCl 1 gm/ Sodium (Chloride) 250 mls @ 250 mls/hr IV Q24H [facility] Last Admin: 05/15/19 20:59 Dose: 250 mls/hr Lactated Ringer's (Ringers, Lactated) 500 mls @ 500 mls/hr IV .BOLUS ONE Stop: 05/15/19 17:51 Last Admin: 05/15/19 17:12 Dose: 500 mls/hr Lactated Ringer's (Ringers, Lactated) 1,000 mls @ 75 mls/hr IV ASDIRECTED [facility] Lactated Ringer's (Ringers, Lactated) Confirm Administered Dose 1,000 mls @ as directed .ROUTE .STK-MED ONE Stop: 05/15/19 17:01 Last Admin: 05/15/19 17:13 Dose: Not Given Lactated Ringer's (Ringers, Lactated) 500 mls @ 999 mls/hr IV ONETIME ONE Stop: 05/15/19 21:12 Last Admin: 05/15/19 20:57 Dose: 999 mls/hr Insulin Human Regular (Humulin R) 10 unit IV ONETIME ONE Stop: 05/12/19 19:24 Last Admin: 05/12/19 19:54 Dose: 10 unit Iopamidol (Isovue-370 (76%)) 100 ml IVPUSH ONETIME ONE Stop: 05/12/19 19:26 Last Admin: 05/12/19 21:23 Dose: 100 ml Lidocaine HCl (Xylocaine 1%) 20 ml INJECT ONETIME ONE Stop: 05/15/19 02:31 Last Admin: 05/15/19 09:46 Dose: Not Given Lorazepam (Ativan) 1 mg IVPUSH Q15M PRN PRN Reason: Anxiety Last Admin: 05/16/19 05:13 Dose: 1 mg Lorazepam (Ativan) 1 mg IVPUSH Q1H PRN PRN Reason: Anxiety Methotrexate (Methotrexate) 15 mg PO TH LORENZO Metoclopramide HCl (Reglan) 10 mg PO Q6H PRN PRN Reason: Nausea Miscellaneous Information (Remove Patch) 1 ea TRDERM Q72H LORENZO Morphine Sulfate (Morphine) 2 mg IVPUSH Q30M PRN PRN Reason: Pain or Shortness of breath Last Admin: 05/17/19 11:59 Dose: 1 mg Ondansetron HCl (Zofran Odt) 4 mg PO Q4H PRN PRN Reason: nausea, able to take PO Ondansetron HCl (Zofran) 4 mg IV Q6H PRN PRN Reason: Nausea/Vomiting Ondansetron HCl (Zofran) 4 mg IVPUSH Q8H PRN PRN Reason: Nausea Scopolamine (Transderm-Scop) 1.5 mg TRDERM Q72H PRN PRN Reason: Secretions Vancomycin HCl (Pharmacy To Dose - Vancomycin) 1 dose .XX ASDIRECTED PRN PRN Reason: RX TO DOSE VANCO
[2019-05-18] MEDS ORDERED: Methotrexate 2.5 MG Tab PO SCH (13:25)
== END 2019-05-17 13:10 | disposition expired | DRG 871 ==
LOC: JD.ED 16:58 → JD.MS 20:01 → UNDOADMIN 20:35 → JD.MS 20:35 → JD.ICU 05-13 15:45 → JD.MS 05-13 15:45 → JD.ICU 05-14 12:24 → JD.MS 05-16 01:20 → JD.ICU 05-16 02:36 → JD.MS 05-16 02:36 → UNDODISIN 05-17 13:10
PROVIDERS: ADMIT Internal Medicine; ATTEND Internal Medicine
PROC: 2Y41X5Z Packing of Nasal Region using Packing Material (ICD-10-PCS; 2019-05-12)
PROC: 02H633Z Insertion of Infusion Device into Right Atrium, Percutaneous Approach (ICD-10-PCS; 2019-05-14)
PROC: B548ZZA Ultrasonography of Superior Vena Cava, Guidance (ICD-10-PCS; 2019-05-14)
PROC: 0W993ZZ Drainage of Right Pleural Cavity, Percutaneous Approach (ICD-10-PCS; principal; 2019-05-15)
DX: A41.9 Sepsis, unspecified organism (principal); J30.9 Allergic rhinitis, unspecified; J15.9 Unspecified bacterial pneumonia; I10 Essential (primary) hypertension; J96.01 Acute respiratory failure with hypoxia; I21.A1 Myocardial infarction type 2; J69.0 Pneumonitis due to inhalation of food and vomit; J90 Pleural effusion, not elsewhere classified; N17.9 Acute kidney failure, unspecified; Z51.5 Encounter for palliative care; D72.810 Lymphocytopenia; N18.9 Chronic kidney disease, unspecified; E87.5 Hyperkalemia; D53.9 Nutritional anemia, unspecified; I12.9 Hypertensive chronic kidney disease with stage 1 through stage 4 chronic kidney disease, or unspecified chronic kidney disease; F03.90 Unspecified dementia, unspecified severity, without behavioral disturbance, psychotic disturbance, mood disturbance, and anxiety; R04.0 Epistaxis; D69.6 Thrombocytopenia, unspecified; M06.9 Rheumatoid arthritis, unspecified; E78.00 Pure hypercholesterolemia, unspecified; H91.93 Unspecified hearing loss, bilateral; K21.9 Gastro-esophageal reflux disease without esophagitis; H26.9 Unspecified cataract; M19.90 Unspecified osteoarthritis, unspecified site; Z20.828 Contact with and (suspected) exposure to other viral communicable diseases; Z91.011 Allergy to milk products; Z88.8 Allergy status to other drugs, medicaments and biological substances; Z91.018 Allergy to other foods; Z79.82 Long term (current) use of aspirin; Z79.899 Other long term (current) drug therapy; Z87.891 Personal history of nicotine dependence; Z85.828 Personal history of other malignant neoplasm of skin; Z91.02 Food additives allergy status; Z79.891 Long term (current) use of opiate analgesic; Z86.73 Personal history of transient ischemic attack (TIA), and cerebral infarction without residual deficits; Z99.81 Dependence on supplemental oxygen
CPT/HCPCS: 36415; 36600; 82728; 82803; 83605; 83615; 85007; 85027; 85379; 86140; 86738; 87040 ×2; 93005; 96365; 96375; 99285; J0610; J0696; J1815; J7030; J7050; 32554; 36556; 51702; 70450; 70450-26; 71045; 71045-26; 71275; 71275-26; 74019; 74019-26; 80048; 80053; 82042; 82150; 82550; 82945; 83735; 83986; 84100; 84145; 84157; 84311; 84478; 84484; 85014; 85018; 85025; 85610; 85730; 86850; 86900; 86901; 87070; 87205; 87641; 88112; 88305; 93970; 93970-26; 99222; 99232; 99233; 99238; A9270-GY; C1729; J0456; J1956; J2060; J2270; J2543; J3370; J7120; J7620-GY; Q9967; U0002